=== PATIENT | female | born 1940 | race Caucasian/White ===

== ENCOUNTER 2019-09-25 11:23 | Outpatient (CLI) | payer MEDICARE, SELFPAY | END 2019-09-25 11:24 | disposition home or self-care (01) | LOC: ANHSURGERY 11:24 | PROVIDERS: PCP Family Medicine; Visit Provider Student in an Organized Health Care Education/Training Program | DX: N95.0 Postmenopausal bleeding (principal) | CPT/HCPCS: 36415; 85014; 85018 ==

== ENCOUNTER 2019-10-01 02:09 | Outpatient (CLI) | payer MEDICARE, SELFPAY ==
[2019-10-01 18:23] LABS: SARS-CoV-2 RNA PCR Negative
== END 2019-10-01 02:10 | disposition home or self-care (01) ==
LOC: ANHCOVIDDT 02:09
PROVIDERS: PCP Family Medicine; Visit Provider Student in an Organized Health Care Education/Training Program
DX: Z01.812 Encounter for preprocedural laboratory examination (principal); Z20.828 Contact with and (suspected) exposure to other viral communicable diseases
CPT/HCPCS: 87635; C9803; U0003

== ENCOUNTER 2019-10-03 01:11 | Day surgery (SDC) | payer MEDICARE, SELFPAY ==
[2019-09-23 13:06] VITALS: BMI 23.8
--- NOTE | 2019-09-26 09:36 | PM.IMHP ---
H&P: HPI History of Present Illness Date/Time: 09/26/19 09:36 Chief complaint: Post Menopausal Bleeding Narrative: Lissette Hackett is a 79 year old female Female presents with postmenopausal bleeding. Patient's an episode of vaginal bleeding and minutes. She had her urethra fully when she had the Ellik discharge spotting pelvic ultrasound was largely unremarkable. 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, 2012 Social History Social History Smoking status: Former smoker Smoking end date: 02/06/1961 Additional smoking assessment comments: STATES 1PK/WEEK QUIT 1961 Alcohol intake: current Spiritual care concerns: No Meds Home Medications and Allergies Home Medications Medication Instructions Recorded Confirmed Type albuterol sulfate 90 mcg/actuation 1 puff INHALATION Q4H PRN 07/05/19 09/23/19 History aerosol inhaler diltiazem HCl 240 mg 240 mg PO DAILY 07/05/19 09/23/19 History capsule,extended release 24 hr lamotrigine 100 mg tablet 100 mg PO DAILY 07/05/19 09/23/19 History losartan 25 mg tablet 25 mg PO DAILY 07/05/19 09/23/19 History rivaroxaban 20 mg tablet 20 mg PO DAILY 07/05/19 09/23/19 History trazodone 50 mg tablet 50 mg PO BID tablet 07/05/19 09/23/19 History omeprazole 20 mg capsule,delayed See Rx Instructions .ROUTE 08/26/19 09/23/19 Rx release .COMPLEX #180 cap docusate sodium [Colace] 100 mg PO DAILY 09/23/19 09/23/19 History Allergies Allergy/AdvReac Type Severity Reaction Status Date / Time gabapentin Allergy Unknown DELUSIONAL Verified 09/23/19 13:13 Exam Const: General: no acute distress Eyes: General: appearance normal, both eyes and all related structures Neck: Neck: supple and no JVD Thyroid: thyroid normal Resp: Effort & Inspection: normal respiratory effort Auscultation: clear to auscultation bilaterally Cardio: Rate: regular rate Rhythm: regular rhythm GI: Inspection: non-distended GI Palp: Yes Soft to palpation, No Tenderness to palpation present (GI) and No Guarding due to palpation present (GI) Auscultation: normal bowel sounds : General: Yes bladder normal to palpation External Female Exam: normal external appearance Speculum Exam - Vagina: normal vaginal discharge and No vaginal bleeding Speculum Exam - Cervix: nontender Bimanual exam- vagina & uterus: bladder normal to palpation and No Cervical tenderness present OB/external & speculum: No vaginal bleeding Skin: General skin exam: no rashes or lesions noted Extrem: General: normal to inspection and no edema Psych: Mental Status: mental status grossly normal Affect: normal affect Assessment and Plan Additional Plan impression: Postmenopausal bleeding Plan: Hysteroscopy / dilatation curettage
--- NOTE | 2019-10-02 11:21 | WPDANESEPPF ---
Anes - Initial Pre Proc Eval Procedure: Operation Date: 10/03/19 12:00 Proposed Procedures p Hysteroscopy Dilation and Curettage - Nhan Thakur MD Date/Time: 10/02/19 11:21 Surgeon: Nhan Thakur MD Pre Op Diagnosis: Post Menopausal Bleeding Patient Data Age: 79 Gender: F Height: 1.57 m Weight: 59 kg Allergies Allergy/AdvReac Type Severity Reaction Status Date / Time gabapentin Allergy Severe PSYCHOTIC Verified 10/03/19 10:20 BREAK Home Medications Medication Instructions Recorded Confirmed Type albuterol sulfate 90 mcg/actuation 1 puff INHALATION Q4H PRN 07/05/19 10/03/19 History aerosol inhaler diltiazem HCl 240 mg 240 mg PO DAILY 07/05/19 10/03/19 History capsule,extended release 24 hr lamotrigine 100 mg tablet 100 mg PO DAILY 07/05/19 10/03/19 History losartan 25 mg tablet 25 mg PO DAILY 07/05/19 10/03/19 History rivaroxaban 20 mg tablet 20 mg PO DAILY 07/05/19 10/03/19 History trazodone 50 mg tablet 50 mg PO BID tablet 07/05/19 10/03/19 History omeprazole 20 mg capsule,delayed See Rx Instructions .ROUTE 08/26/19 10/03/19 Rx release .COMPLEX #180 cap docusate sodium [Colace] 100 mg PO DAILY 09/23/19 10/03/19 History Patient hx anesthesia problems: none Family hx anesthesia problems: none PMFSH Past Medical History Medical History (Updated 10/03/19 @ 07:47 by Nhan Thakur MD) Bipolar disorder Hypertension Neuropathy ANDREY (obstructive sleep apnea) mild, no CPAP Osteoarthritis PAF (paroxysmal atrial fibrillation) Rhinitis Scoliosis Shortness of Breath Surgical History Surgical History (Updated 07/05/19 @ 13:02 by Tabatha Sweeney MD) History of intestinal surgery April 2007 Status post left hip replacement August 20, 2012 Social History Social History Smoking status: Former smoker Smoking end date: 02/06/1961 Additional smoking assessment comments: STATES 1PK/WEEK QUIT 1961 Alcohol intake: current Living arrangements: alone Spiritual care concerns: No Anes - Eval Final PreProcedure Day of Procedure 10/02/19 11:21 Patient weight: normal Heart: regular rate and rhythm Lungs: clear to auscultation and normal air movement Airway: Mallampati scale class III Neurological: alert and oriented Last oral intake: >/= 8 hours ASA classification: III Emergent: no Anesthetic plan: proceed Anesthesia type and monitoring: general GIVS and standard monitoring Informed Consent: The patient's anesthetic plan and its attendant risks and benefits were discussed with the patient/family/POA. Questions were solicited and answers provided to the satisfaction of the patient/family/POA.
--- NOTE | 2019-10-03 07:42 | PM.IMHP ---
H&P: HPI History of Present Illness Date/Time: 10/03/19 07:42 Chief complaint: Post Menopausal Bleeding Narrative: Lissette Hackett is a 79 year old female who presented with postmenopausal bleeding. Pt reported vaginal spotting on and off. She had a pelvic US which showed a EM thickness of 5mm. Endometrial biopsy in office was unsuccessful due to patient intolerance of exam and vaginal stenosis. Pt continued to have vaginal spotting so decision was made to proceed with hysteroscopy and D&C. Review of Systems Cardiovascular: Cardiovascular: Denies chest pain, Denies leg edema, Denies palpitations, Denies dyspnea and Denies dyspnea on exertion Respiratory: Respiratory: Denies cough, Denies dyspnea and Denies dyspnea on exertion Gastrointestinal: Gastrointestinal: Denies abdominal pain, Denies constipation, Denies diarrhea, Denies nausea and Denies vomiting Genitourinary: Genitourinary: Denies hematuria, Denies urinary frequency, Denies dysuria, Denies pelvic pain, Denies urinary incontinence and Denies vaginal discharge Neurologic: Reports system reviewed and no additional complaints, except as documented Psychiatric: Psychiatric: Reports no additional psychiatric complaints Endocrine: Endocrine: Denies palpitations PMFSH Past Medical History Medical History (Updated 10/03/19 @ 07:47 by Nhan Thakur MD) Bipolar disorder Hypertension Neuropathy ANDREY (obstructive sleep apnea) mild, no CPAP Osteoarthritis PAF (paroxysmal atrial fibrillation) Rhinitis Scoliosis Shortness of Breath Surgical History Surgical History (Updated 07/05/19 @ 13:02 by Tabatha Sweeney MD) History of intestinal surgery April 2007 Status post left hip replacement August 20, 2012 Social History Social History Smoking status: Former smoker Smoking end date: 02/06/1961 Additional smoking assessment comments: STATES 1PK/WEEK QUIT 1961 Alcohol intake: current Living arrangements: alone Spiritual care concerns: No Meds Home Medications and Allergies Home Medications Medication Instructions Recorded Confirmed Type albuterol sulfate 90 mcg/actuation 1 puff INHALATION Q4H PRN 07/05/19 09/23/19 History aerosol inhaler diltiazem HCl 240 mg 240 mg PO DAILY 07/05/19 09/23/19 History capsule,extended release 24 hr lamotrigine 100 mg tablet 100 mg PO DAILY 07/05/19 09/23/19 History losartan 25 mg tablet 25 mg PO DAILY 07/05/19 09/23/19 History rivaroxaban 20 mg tablet 20 mg PO DAILY 07/05/19 09/23/19 History trazodone 50 mg tablet 50 mg PO BID tablet 07/05/19 09/23/19 History omeprazole 20 mg capsule,delayed See Rx Instructions .ROUTE 08/26/19 09/23/19 Rx release .COMPLEX #180 cap docusate sodium [Colace] 100 mg PO DAILY 09/23/19 09/23/19 History Allergies Allergy/AdvReac Type Severity Reaction Status Date / Time gabapentin Allergy Unknown DELUSIONAL Verified 09/23/19 13:13 Exam Const: General: no acute distress Eyes: EOM: EOMs intact bilaterally Neck: Neck: supple Thyroid: thyroid normal Chest: Breast/axilla inspection: normal inspection of the breasts Breast/axilla palpation: normal palpation of the breasts, normal palpation of the axillae and no axillary lymphadenopathy Resp: Effort & Inspection: normal respiratory effort Auscultation: clear to auscultation bilaterally Cardio: Rate: regular rate Rhythm: regular rhythm GI: Inspection: non-distended GI Palp: Yes Soft to palpation, No Tenderness to palpation present (GI) and No Guarding due to palpation present (GI) Auscultation: normal bowel sounds : General: Yes bladder normal to palpation External Female Exam: normal external appearance Speculum Exam - Vagina: normal vaginal discharge and tenderness Bimanual exam- vagina & uterus: bladder normal to palpation and Cervical tenderness present OB/external & speculum: No vaginal bleeding Skin: General skin exam: normal color and no
[2019-10-03 10:04] VITALS: BP 169/93; PULSE 88; RESP 20; TEMP 37; O2SAT 99
[2019-10-03] MEDS: ACETAMINOPHEN 500 MG TABLET 1000 MG PO (10:24)
[2019-10-03] MEDS: LACTATED RINGERS 1,000 ML 30 ML IV CONT (10:31)
[2019-10-03] MEDS: LIDOCAINE HCL 1% LOCAL INJ 20 ML VIAL 10 ML INFILTRATE (12:38)
--- NOTE | 2019-10-03 12:43 | PM.PROC ---
Procedure Note - Detailed Date of procedure: 10/03/19 Pre-op diagnosis: Post Menopausal Bleeding Post-op diagnosis: same Procedure performed: Hysteroscopy Dilation and curettage Description of procedure: The patient was taken to the OR and general anesthesia induced. She was prepped and draped in yellow fin stirrups with support of the back and bilateral lower extremities. I/O catheterization performed of the bladder. Sterile speculum was placed to identify the cervix. On exam, there was suspicion that there may be two cervix. The cervix patient's left was then infiltrated with 1% lidocaine at the 3 and 9 o'clock cervical positions was performed. A single tooth tenaculum was placed on the anterior lip of the cervix. The cervix was dilated with sequential Sherice dilators. Hysteroscopy, using a normal saline medium, was performed. Hysteroscopy revealed pale, normal appearing endometrial tissue, there was also suture material identified in the uterine cavity. Sharp uterine curettage was then performed and tissue placed on Telfa. The tenaculum was removed and hemostasis was observed. Attention was then turned to the patients other cervix on her right side. Again, infiltration wiht 1% lidocaine was performed. The cervix was sequentially dilated to allow passage of the hysteroscope. Hysteroscopy again revealed pale, normal appearing endometrial tissue and again suture material. It was uncertain if this was two separate uterine cavities or if both cervix passages connected to the same uterus. Again, sharp curettage was performed and tissue sample was placed on Telfa and sent for pathology. The patient tolerated the procedure well. Sponge, lap, and needle counts were correct. The patient had SCD's on throughout the case for VTE prophylaxis. The patient was taken to the recovery room in stable condition. Anesthesia: GETA Surgeon: Nhan Thakur MD Estimated blood loss (mL): 25 Drains: No Packing: No Pathology: yes (endometrial curettings ) Complications: No immediate complications Condition: stable Disposition: PACU
--- NOTE | 2019-10-03 12:47 | SUR.OPER ---
500ml ns in, 500ml ns out. aware.
[2019-10-03 12:50] VITALS: BP 126/78; PULSE 74; RESP 12; O2SAT 97
[2019-10-03 13:20] VITALS: BP 113/78; PULSE 72; RESP 14
[2019-10-03 13:50] VITALS: BP 123/78; PULSE 72; RESP 14
== END 2019-10-03 13:50 | disposition home or self-care (01) ==
PROVIDERS: PCP Family Medicine; Visit Provider Student in an Organized Health Care Education/Training Program
PROC: 0U5B8ZZ Destruction of Endometrium, Via Natural or Artificial Opening Endoscopic (ICD-10-PCS; CPT 58563; principal; 2019-10-03 12:00)
DX: N95.0 Postmenopausal bleeding (principal); I10 Essential (primary) hypertension; F31.9 Bipolar disorder, unspecified; G47.33 Obstructive sleep apnea (adult) (pediatric); I48.0 Paroxysmal atrial fibrillation; Z87.891 Personal history of nicotine dependence; N89.5 Stricture and atresia of vagina; Z79.899 Other long term (current) drug therapy
CPT/HCPCS: 58558; 88305; A9270; J2704; J3010; J7030; J7120

== ENCOUNTER 2020-04-06 16:19 | Outpatient (CLI) | payer MEDICARE, SELFPAY | END 2020-04-06 16:20 | disposition home or self-care (01) | LOC: ANHCOVIDVC 16:19 | PROVIDERS: PCP Family Medicine | DX: Z23 Encounter for immunization (principal) | CPT/HCPCS: 0001A; 91300 ==

== ENCOUNTER 2020-04-27 15:58 | Outpatient (CLI) | payer MEDICARE, SELFPAY | END 2020-04-27 15:59 | disposition home or self-care (01) | LOC: ANHCOVIDVC 15:58 | PROVIDERS: PCP Family Medicine | DX: Z23 Encounter for immunization (principal) | CPT/HCPCS: 0002A; 91300 ==

== ENCOUNTER 2020-05-19 10:16 | Outpatient (CLI) | payer MEDICARE, SELFPAY ==
--- NOTE | ~2020-05-19 | XR_ITS ---
EXAMINATION: XR lg joint inject/asp w image DATE: 05/19/2020 11:21 INDICATION: Right hip pain. TECHNIQUE: A time-out was performed to verify the patient's name, date of , and procedure to b e performed. The procedure including the risks, benefits, and alternatives was discussed with the pat ient. Risks discussed included bleeding and infection. The patient understood the risks and agreed to proceed. The skin overlying the right hip joint was prepped and draped in usual sterile fashion. A nesthetic was administered with 1% lidocaine subcutaneously. A 22 G needle was advanced under fluoro scopic guidance into the joint. Injection of 1 mL of Omnipaque 240 confirmed intra-articular positio n of the needle. Subsequently, injectate consisting of 4 mL 1% lidocaine and 1 mL 80 mg/mL Depo-Medr ol was instilled. The needle was removed and the entry site was cleaned and dressed. There were no immediate complications. Fluoroscopy exposure time was 0.1 minutes. The total number of images was 2. FINDINGS: Real-time fluoroscopy demonstrates the needle in the right hip joint. IMPRESSION: 1. Fluoroscopy guided right hip joint injection of local anesthetic and steroid. Reviewed, dictated and finalized at location A. IMPRESSION: 1. Fluoroscopy guided right hip joint injection of local anesthetic and steroid .
== END 2020-05-19 10:17 | disposition home or self-care (01) ==
PROVIDERS: PCP Family Medicine; Visit Provider Orthopaedic Surgery
DX: M16.11 Unilateral primary osteoarthritis, right hip (principal)
CPT/HCPCS: 20610; 77002; J1040; Q9966

== ENCOUNTER 2021-09-28 08:50 | Emergency (ER) | payer MEDICARE, SELFPAY ==
[2021-09-28] VITALS (7 sets, daily range): BP systolic 127–167; BP diastolic 77–100; PULSE 88–107; RESP 16–18; TEMP 36.6; O2SAT 97–98
--- NOTE | ~2021-09-28 | XR_ITS ---
EXAMINATION: XR knee LT 3V DATE: 09/28/2021 10:12 INDICATION: Left knee pain. Fall. TECHNIQUE: 3 views of left knee were obtained. COMPARISON: None. FINDINGS: Bone alignment is normal. No fracture. There is mild tricompartmental osteoarthritis. There is a small knee joint effusion. There is prepatellar soft tissue swelling. IMPRESSION: 1. Mild left knee osteoarthritis. 2. Small left knee joint effusion. 4. Prepatellar soft tissue swelling. Reviewed, dictated and finalized at location A.
--- NOTE | ~2021-09-28 | XR_ITS ---
EXAMINATION: XR hip LT 2V w AP pelvis DATE: 09/28/2021 10:12 INDICATION: Left hip pain. Fall. TECHNIQUE: An anteroposterior view of the pelvis on 2 radiographs and and 2 views of left hip were ob tained. COMPARISON: None. FINDINGS: There is a total left hip arthroplasty in near-anatomic alignment. No fracture. No peripros thetic lucency to suggest loosening or infection. There is moderate right hip osteoarthritis. Osteiti s pubis is noted. There is lumbar dextrocurvature and severe spondylosis. IMPRESSION: 1. Total left hip arthroplasty in near-anatomic alignment. 2. Moderate right hip osteoarthritis. Reviewed, dictated and finalized at location A.
--- NOTE | 2021-09-28 09:33 | ED.FALL ---
HPI - Fall General Chief Complaint: Fall Stated Complaint: LLE pain s/p fall Time Seen by Provider: 09/28/21 09:01 History of Present Illness HPI Narrative: 81-year-old female presents to the emergency room today for complaints of left hip pain and left knee pain. She had a ground-level fall yesterday evening. A neighbor was able to help her up and she said that she did not really have much pain initially after the fall. She says that during the night she started to have significant pain and swelling in her left knee. Today she is noted quite a bit of bruising and swelling to her left knee. She describes it as a burning kind of pain in her knee. She also has a large bruised area to her left lateral hip. She says that her hip is a little bit sore but not too bad. She is on a blood thinner. No injury to head, neck or back. Related Data Home Medications Medication Instructions Recorded Confirmed diltiazem HCl 240 mg 240 mg PO DAILY 07/05/19 03/30/21 capsule,extended release 24 hr lamotrigine 100 mg tablet 100 mg PO DAILY 07/05/19 03/30/21 (Lamictal) losartan 25 mg tablet (Cozaar) 25 mg PO DAILY 07/05/19 03/30/21 rivaroxaban 20 mg tablet (Xarelto) 20 mg PO DAILY 07/05/19 03/30/21 trazodone 50 mg tablet 50 mg PO BID 07/05/19 03/30/21 mirabegron 25 mg tablet,extended 25 mg PO DAILY 09/28/20 03/30/21 release 24 hr (Myrbetriq) Allergies Allergy/AdvReac Type Severity Reaction Status Date / Time gabapentin Allergy Severe PSYCHOTIC Verified 09/28/21 09:08 BREAK Review of Systems Review of Systems: CONSTITUTIONAL: Denies fever, chills, or sweats. EYES: Denies visual changes, redness, or discharge. ENT: Denies rhinorrhea, congestion, sore throat, or otalgia. CARDIOVASCULAR: Denies chest pain, palpitations, or edema. RESPIRATORY: Denies cough or dyspnea. GASTROINTESTINAL: Denies abdominal pain, nausea, vomiting, or diarrhea. GENITOURINARY: Denies dysuria or hematuria. SKIN: as per HPI MUSCULOSKELETAL: as per HPI NEUROLOGIC: Denies headache, numbness, dizziness, or weakness. PSYCHIATRIC: Denies anxiety or depression. [facility] Past Medical History Medical History Bipolar disorder Hypertension Neuropathy ANDREY (obstructive sleep apnea) mild, no CPAP Osteoarthritis PAF (paroxysmal atrial fibrillation) Rhinitis Scoliosis Shortness of Breath Surgical History Surgical History History of intestinal surgery April 2007 Status post left hip replacement August 20, 2012 Family History Family History Mother Family history of cardiovascular disease, Onset Age: 74 Hypertension Sibling Hypertension Malignant neoplasm of prostate Other Family history of schizophrenia Social History Social History Smoking status: Former smoker Smoking end date: 02/06/1961 Additional smoking assessment comments: STATES 1PK/WEEK QUIT 1961 Alcohol intake: current Spiritual care concerns: No Exam Narrative: GENERAL: Well-appearing, well-nourished, and in no acute distress. HEAD: Normocephalic, atraumatic. EYES: PERRLA and EOMI. ENT: Nares clear, no rhinorrhea or epistaxis. Mucous membranes moist. Oropharynx without tonsillar hypertrophy exudate or other lesions. Bilateral TMs pearly nieto nonbulging NECK: Supple. No adenopathy or masses. No carotid bruits or JVD CHEST: Clear to auscultation. No respiratory distress. No wheezes rales or rhonchi HEART: Regular rate and rhythm. No murmur heard. Normal peripheral pulses. ABDOMEN: Soft, nontender, nondistended, normal active bowel sounds. EXTREMITIES: Left lateral/posterior hip with hematoma and tenderness, no deformity, normal ROM. Left knee very swollen with large hematoma, distal pulses and sensation intact. SKIN: Warm, dry, no rash.
== END 2021-09-28 11:27 | disposition home or self-care (01) ==
PROVIDERS: Emergency Provider Nurse Practitioner Family; PCP Family Medicine
DX: S70.02XA Contusion of left hip, initial encounter (principal); S80.02XA Contusion of left knee, initial encounter; I10 Essential (primary) hypertension; I48.0 Paroxysmal atrial fibrillation; G47.33 Obstructive sleep apnea (adult) (pediatric); F31.9 Bipolar disorder, unspecified; Z79.01 Long term (current) use of anticoagulants; Z96.642 Presence of left artificial hip joint; Z87.891 Personal history of nicotine dependence; M17.12 Unilateral primary osteoarthritis, left knee; M16.11 Unilateral primary osteoarthritis, right hip
CPT/HCPCS: 73502; 73562; 99284

== ENCOUNTER → 2021-11-10 13:37 | Outpatient (CLI) | payer MEDICARE, SELFPAY ==
--- NOTE | ~2021-11-10 | XR_ITS ---
EXAM: XR wrist LT min 3V DATE: 11/10/2021 13:53 HISTORY: Primary osteoarthritis, left and right wrist no injury . COMPARISON: None available. FINDINGS: Decreased mineralization. No fracture or dislocation. No lytic or blastic lesion. Moderate degenerative change at the left trapeziometacarpal joint and first PIP joint, with similar but milde r changes on the right. Severe arthritic change at the triscaphe joints. Bilateral radial carpal narr owing. Abnormal scapholunate and capitolunate angles bilaterally, worse on the left. No erosion or pe riosteal change. Chondrocalcinosis. Bilateral wrist soft tissue swelling. IMPRESSION: Arthritic changes, most pronounced in the left trapeziometacarpal joint and bilateral tri scaphe joints. Bilateral SLAC wrist deformity. Chondrocalcinosis, can be seen with CPPD. Reviewed, dictated and finalized at location K. IMPRESSION: Arthritic changes, most pronounced in the left trapeziometacarpal j oint and bilateral triscaphe joints. Bilateral SLAC wrist deformity. Chondrocal cinosis, can be seen with CPPD.
--- NOTE | ~2021-11-10 | XR_ITS ---
EXAMINATION: XR wrist RT min 3V DATE: 11/10/2021 13:53 INDICATION: Primary osteoarthritis of the right wrist TECHNIQUE: Posteroanterior, ulnar deviation, oblique, and lateral views of the right wrist were obtai lorenzo. COMPARISON: 04/14/2014 FINDINGS: Diffuse osteopenia. No fracture. There is suboptimal positioning on the lateral projection however th ere does appear to be increased lunocapitate angle. There is also mild relative widening of the scaph olunate interval and atypical severe osteoarthritis at the lunocapitate articulation. 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 Additional severe osteoarth ritis at the triscaphe and first carpal metacarpal joints, moderate osteoarthritis at the first inter phalangeal and second-fourth metacarpophalangeal joints and mild osteoarthritis at the remaining join ts at the right wrist and visualized hand. IMPRESSION: 1. Constellation of findings consistent with chronic scapholunate ligament insufficiency and secondar y dorsal intercalated segment instability (DISI) and scapholunate advanced collapse (SLAC) wrist. 2. Moderate to severe osteoarthritis at the right hand. Reviewed, dictated and finalized at location A. IMPRESSION: 1. Constellation of findings consistent with chronic scapholunate ligament insu fficiency and secondary dorsal intercalated segment instability (DISI) and scap holunate advanced collapse (SLAC) wrist. 2. Moderate to severe osteoarthritis at the right hand.
== END ==
PROVIDERS: PCP Family Medicine; Visit Provider Plastic Surgery
DX: M19.031 Primary osteoarthritis, right wrist (principal); M19.032 Primary osteoarthritis, left wrist
CPT/HCPCS: 73110

== ENCOUNTER 2021-12-31 16:07 | Emergency (ER) | payer MEDICARE, SELFPAY ==
[2021-12-31 16:21] VITALS: BP 141/93; PULSE 81; RESP 16; TEMP 36.6; O2SAT 96
== END 2021-12-31 21:26 | disposition left against medical advice (07) ==
PROVIDERS: PCP Family Medicine
DX: R06.02 Shortness of breath (principal)
CPT/HCPCS: 99199

== ENCOUNTER 2022-01-01 10:42 | Inpatient (IN) | payer MEDICARE, SELFPAY ==
[2022-01-01] VITALS (42 sets, daily range): BP systolic 127–158; BP diastolic 76–109; PULSE 74–118; RESP 14–40; TEMP 35.9–37.1; O2SAT 89–100; BMI 24.2
--- NOTE | ~2022-01-01 | XR_ITS ---
XR chest 2V DATE: 01/01/2022 11:25 INDICATION: Cough, shortness of breath TECHNIQUE: PA and lateral views COMPARISON: 08/14/2015 2 view chest FINDINGS: Bilateral hyperinflation. There is mild infiltrate or atelectasis in the lung bases, primarily left lower lobe. The lungs other dye appear clear of infiltrate or consolidation. Cardiomegaly. Aortic calcification, ectasia. No hilar or mediastinal enlargement is noted. Diffuse osteopenia. Thoracic kyphosis. Degenerative change of the thoracic and lumbar spine. IMPRESSION: Mild infiltrate or atelectasis at the lung bases, primarily left lower lobe. Reviewed, dictated and finalized at location A. METERS CALIBRATOR IMPRESSION: Mild infiltrate or atelectasis at the lung bases, primarily left lo wer lobe.
--- NOTE | 2022-01-01 10:59 | ECG_ITS ---
Measurements Intervals [place] Rate: 102 P: 56 DC: 212 QRS: 33 QRSD: 89 T: 33 QT: 315 QTc: 412 Interpretive Statements SINUS TACHYCARDIA WITH FIRST DEGREE AV BLOCK DELAYED PRECORDIAL R/S TRANSITION BASELINE ARTIFACT- II, III, AVL, AVF, V1, V6 ABNORMAL ECG NO PREVIOUS ECG AVAILABLE FOR COMPARISON Electronically Signed On 01-01-2022 11:42:26 [employer] by Janusz Rashid D.O.
[2022-01-01 11:22] LABS: Potassium 4.3 mmol/L (3.4-5.0)
[2022-01-01 11:23] LABS: Basophils Percent Auto 0.2 % (0.2-1.2); Eosinophils Absolute Auto 0.3 K/mm3 (0-0.3); Hematocrit 46.1 % (37.0-47.0); Immature Granulocyte Absolute 0.03 K/mm3 (0.00-0.031); Immature Granulocyte Percent A 0.3 % (0-0.5); Lymphocytes Absolute Auto 0.58 K/mm3 (0.9-3.2); Lymphocytes Percent Auto 6.3 % (18.3-44.2); Mean Corpuscular HGB Conc 32.5 g/dl (32-36); Mean Corpuscular Hemoglobin 30.7 pg (26-34); Mean Corpuscular Volume 94.5 fl (80-100); Mean Platelet Volume 9.2 fl (7.4-10.4); Monocytes Absolute Auto 1.1 K/mm3 (0.1-0.6); Monocytes Percent Auto 12.1 % (2.6-8.5); Neutrophils Absolute Auto 7.2 K/mm3 (1.3-6.7); Neutrophils Percent Auto 78.1 % (45.5-73.1); Platelet Count Result 317 k/mm3 (150-375); Red Blood Count 4.88 M/mm3 (4.2-5.4); Red Cell Distribution Width 13.7 % (11.5-14.5); White Blood Count 9.2 K/mm3 (4.5-10.0)
[2022-01-01 11:30] LABS: Alanine Aminotransferase 21 U/L (6-35); Albumin Level 4.5 g/dL (3.5-5.1); Alkaline Phosphatase 95 U/L (38-126); Anion Gap 9 mmol/L (8-16); Aspartate Amino Transferase 23 U/L (14-36); Bilirubin,Total 0.5 mg/dL (0.2-1.3); Blood Urea Nitrogen 14 mg/dL (7-17); Calcium 9.3 mg/dL (8.4-10.2); Carbon Dioxide 28 mmol/L (22-30); Chloride 93 mmol/L (98-107); Estimated CRCL calculation 48 ml/min; Estimated Glomerular Filt Rate > 60; Glucose 117 mg/dL (65-110); Sodium 130 mmol/L (137-145)
[2022-01-01] MEDS: ALBUTEROL SULFATE NEB 2.5 MG/3 ML INH 15 MG INHALATION (11:59)
[2022-01-01] MEDS: IPRATROPIUM BR 0.02% INH SOLN 0.5 MG/2.5 ML VIAL 1.5 MG INHALATION (11:59)
[2022-01-01 12:26] LABS: Influenza A QL RT-PCR Negative (Negative); Influenza B QL RT-PCR Negative (Negative); SARS-CoV-2 RNA PCR Negative
[2022-01-01] MEDS: methylPREDNISolone SOD SUCC 125 MG VIAL IV PUSH (13:45)
--- NOTE | 2022-01-01 14:36 | PC.NURSE ---
pt to bathroom, pt o2 saturation dropped to 89% on RA taken back to room. NC placed back on the pt
--- NOTE | 2022-01-01 14:45 | ED.SOB ---
HPI - SOB/Dyspnea General Chief Complaint: Shortness of Breath/Dyspnea Stated Complaint: cough, SOB Time Seen by Provider: 01/01/22 10:44 History of Present Illness HPI Narrative: Patient is an 81-year-old female who presents ER with shortness of breath. Worsening over the last week. Associate with cough. No fevers or chills. No chest pain or chest pressure. Has history of COPD. Has been using her breathing treatments without improvement. Today she is unable to walk from her bedroom to her front door and that is why she knew she needed to be evaluated. Related Data Home Medications Medication Instructions Recorded Confirmed diltiazem HCl 240 mg 240 mg PO DAILY 07/05/19 01/01/22 capsule,extended release 24 hr lamotrigine 100 mg tablet 100 mg PO HS 07/05/19 01/01/22 (Lamictal) losartan 25 mg tablet (Cozaar) 25 mg PO DAILY 07/05/19 01/01/22 rivaroxaban 20 mg tablet (Xarelto) 20 mg PO DAILY 07/05/19 01/01/22 eszopiclone 2 mg tablet 2 mg PO HS 01/01/22 01/01/22 omeprazole 20 mg capsule,delayed 20 mg PO BID 01/01/22 01/01/22 release Allergies Allergy/AdvReac Type Severity Reaction Status Date / Time gabapentin Allergy Severe PSYCHOTIC Verified 01/01/22 11:00 BREAK Review of Systems Review of Systems: All systems reviewed & are unremarkable except as noted in HPI and below Constitutional: Constitutional: Denies chills, Reports fatigue and Denies fever(s) ENT: Denies nasal congestion and Denies sore throat Cardiovascular: Cardiovascular: Denies chest pain, Denies rapid heart rate and Denies radiating jaw, neck or arm pain Respiratory: Respiratory: Reports cough, Reports dyspnea and Reports wheezing Gastrointestinal: Gastrointestinal: Denies abdominal pain, Denies nausea and Denies vomiting Musculoskeletal: Musculoskeletal: Denies back pain and Denies myalgias [facility] Past Medical History Medical History (Updated 01/01/22 @ 18:39 by Silverio Sotelo MD) Bipolar disorder COPD (chronic obstructive pulmonary disease) Hypertension Neuropathy ANDREY (obstructive sleep apnea) mild, no CPAP Osteoarthritis PAF (paroxysmal atrial fibrillation) Rhinitis Scoliosis Shortness of Breath Surgical History Surgical History (Updated 01/01/22 @ 17:05 by Yolanda Allen NP) H/O exploratory laparotomy History of bunionectomy History of intestinal surgery April 2007 S/P carpal tunnel release Status post left hip replacement August 20, 2012 Total knee replacement status Family History Family History Mother Family history of cardiovascular disease, Onset Age: 74 Hypertension Sibling Hypertension Malignant neoplasm of prostate Other Family history of schizophrenia Social History Social History (Updated 01/01/22 @ 16:50 by Yolanda Allen NP) Social History: She lives alone but her son is approximately half a mi down the road. She is . She has 4 children. 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 She was a former smoker. She rarely drinks alcohol. No illicit drugs code status dnr Smoking status: Former smoker Smoking end date: 02/06/1961 Additional smoking assessment comments: STATES 1PK/WEEK QUIT 1961 Alcohol intake: current Spiritual care concerns: No Exam Narrative: GENERAL: Chronically ill-appearing, thin, and in no acute distress. HEAD: Normocephalic, atraumatic. EYES: PERRL and EOMI. ENT: Mucous membranes moist. CHEST: Diffuse wheezing. Mild respiratory distress. HEART: Regular rate and rhythm. Normal peripheral pulses. ABDOMEN: Soft, nontender, nondistended. EXTREMITIES: Normal range of motion. No edema. SKIN: Warm, dry, no rash. NEURO: Alert and oriented x3. PSYCH: Normal mood and affect. Course Course Emergency Course: Patient with low O2 sat when she was here. Satting in the 80s after nebuli
--- NOTE | 2022-01-01 15:06 | PM.IMHP ---
H&P: HPI History of Present Illness Date/Time: 01/01/22 15:06 Chief Complaint: Shortness of breath Narrative: This is a 81-year-old female patient who has a history of COPD. She stated that a few days ago she did have a fever and she has been coughing up thick green sputum. The patient does not typically wear oxygen at home however with activity here she has been satting in the upper 80s with activity. She was placed on oxygen at 2 L per nasal cannula and her O2 saturation came up to 98%. She does not have a white count or fever at this time. However her chest x-ray does read as mild infiltrate or atelectasis at the lung bases probably left lower lobe. After reviewing her x-ray I saw the consolidation to the left lobe and decided to place her on community-acquired pneumonia protocol with a azithromycin and Rocephin. Due to from percentage is 78.1. So in levels 130. She was found to be negative for influenza A/B and COVID. She was given an hour long nebulizer treatment and started on Solu-Medrol. The patient is being admitted to observation status on the date of service of 01/01/2022. Review of Systems Review of Systems: see hpi All systems reviewed & are unremarkable except as noted in HPI and below Constitutional: Constitutional: Reports as per HPI and Reports no additional constitutional complaints Eyes: Eyes: Reports as per HPI and Reports no additional eye complaints ENT: Reports system reviewed and no additional complaints, except as documented and Reports Normal hearing present Cardiovascular: Cardiovascular: Reports no additional cardiovascular complaints Respiratory: Respiratory: Reports no additional respiratory complaints and Reports no additional respiratory complaints Gastrointestinal: Gastrointestinal: Reports as per HPI and Reports no additional gastrointestinal complaints Musculoskeletal: Musculoskeletal: Reports no additional musculoskeletal complaints Integumentary/Breasts: Skin/Breast: Reports system reviewed and no additional complaints, except as docu and Reports as per HPI Neurologic: Reports system reviewed and no additional complaints, except as documented, Reports as per HPI and Reports Normal hearing present Psychiatric: Psychiatric: Reports no additional psychiatric complaints and Reports as per HPI Endocrine: Endocrine: Reports no additional endocrine complaints Hematologic/Lymphatic: Hematologic/Lymphatic: Reports no additional hematologic/lymphatic complaints Allergic/Immunologic: Allergic/Immunologic: Reports no additional allergic/immunologic complaints [facility] Past Medical History Medical History (Updated 01/01/22 @ 17:02 by Yolanda Allen NP) Bipolar disorder COPD (chronic obstructive pulmonary disease) Hypertension Neuropathy ANDREY (obstructive sleep apnea) mild, no CPAP Osteoarthritis PAF (paroxysmal atrial fibrillation) Rhinitis Scoliosis Shortness of Breath Surgical History Surgical History (Updated 01/01/22 @ 17:05 by Yolanda Allen NP) H/O exploratory laparotomy History of bunionectomy History of intestinal surgery April 2007 S/P carpal tunnel release Status post left hip replacement August 20, 2012 Total knee replacement status Family History Family History Mother Family history of cardiovascular disease, Onset Age: 74 Hypertension Sibling Hypertension Malignant neoplasm of prostate Other Family history of schizophrenia Social History Social History (Updated 01/01/22 @ 16:50 by Yolanda Allen NP) Social History: She lives alone but her son is approximately half a mi down the road. She is . She has 4 children. 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 She was a former smoker. She rarely drinks alcohol. No illicit drugs code status dnr Smoking status: Former smoker Smoking end d
[2022-01-01] MEDS: methylPREDNISolone SOD SUCC 125 MG VIAL 60 MG IV PUSH (19:00)
[2022-01-01] MEDS: RIVAROXABAN 20 MG TABLET PO (21:00)
[2022-01-01] MEDS: ALBUTEROL SULFATE NEB 2.5 MG/3 ML INH 5 MG INHALATION (22:07)
[2022-01-01] MEDS: IPRATROPIUM BR 0.02% INH SOLN 0.5 MG/2.5 ML VIAL INHALATION (22:08)
[2022-01-01] MEDS: FLUTICASONE/UMECLIDIN/VILANTER 100-62.5-25 MCG ELLIPTA 1 PUFF INHALATION (22:09)
[2022-01-01] MEDS: lamoTRIgine 100 MG TABLET PO (22:15)
[2022-01-02] VITALS (10 sets, daily range): BP systolic 139–155; BP diastolic 74–78; PULSE 71–99; RESP 14–20; TEMP 36.4–36.7; O2SAT 92–98
[2022-01-02] MEDS: methylPREDNISolone SOD SUCC 125 MG VIAL 60 MG IV PUSH ×4 (00:22→17:05)
[2022-01-02] MEDS: ALBUTEROL SULFATE NEB 2.5 MG/3 ML INH 5 MG INHALATION ×4 (02:55→20:33)
[2022-01-02] MEDS: IPRATROPIUM BR 0.02% INH SOLN 0.5 MG/2.5 ML VIAL INHALATION ×4 (02:55→20:33)
[2022-01-02 07:08] LABS: Hematocrit 39.8 % (37.0-47.0); Hemoglobin 13.3 g/dL (12.0-15.0); Mean Corpuscular HGB Conc 33.4 g/dl (32-36); Mean Corpuscular Volume 92.8 fl (80-100); Mean Platelet Volume 9.3 fl (7.4-10.4); Platelet Count Result 283 k/mm3 (150-375); Red Blood Count 4.29 M/mm3 (4.2-5.4); Red Cell Distribution Width 13.6 % (11.5-14.5); White Blood Count 7.2 K/mm3 (4.5-10.0)
[2022-01-02 07:27] LABS: Lactic Acid Reflex 1.3 mmol/L (0.7-2.0)
[2022-01-02 07:28] LABS: Alanine Aminotransferase 20 U/L (6-35); Alkaline Phosphatase 101 U/L (38-126); Anion Gap 6 mmol/L (8-16); Aspartate Amino Transferase 20 U/L (14-36); Bilirubin,Total 0.3 mg/dL (0.2-1.3); Blood Urea Nitrogen 16 mg/dL (7-17); Calcium 8.9 mg/dL (8.4-10.2); Carbon Dioxide 28 mmol/L (22-30); Chloride 93 mmol/L (98-107); Estimated CRCL calculation 68 ml/min; Estimated Glomerular Filt Rate > 60; Glucose 176 mg/dL (65-110); Magnesium 2.1 mg/dL (1.6-2.3); Potassium 4.2 mmol/L (3.4-5.0); Sodium 127 mmol/L (137-145)
[2022-01-02] MEDS: PANTOPRAZOLE 40 MG TABLET PO ×2 (08:21→20:14)
[2022-01-02] MEDS: LOSARTAN POTASSIUM 25 MG TABLET PO (08:21)
[2022-01-02 08:26] LABS: Band Neutrophils Percent 7 % (0-6); Lymphocytes Absolute Manual 0.07 K/mm3 (1.1-4.5); Monocytes Absolute Manual 0.21 K/mm3 (0.1-0.90); Monocytes Percent Manual 3 % (3-9); Neutrophils Absolute Manual 6.91 K/mm3 (1.7-7.2); Neutrophils Percent Manual 89 % (46-73); Total Cells Counted 100
[2022-01-02 08:27] LABS: Platelet Estimate Adequate (Adequate); Poikilocytosis 1+ (NORMAL); Schistocytes None Seen (NORMAL)
--- NOTE | 2022-01-02 10:45 | PM.IMPN ---
Progress Note: A&P Assessment and Plan (1) Pneumonia: Code(s): J18.9 - Pneumonia, unspecified organism Status: Acute Assessment and Plan: -the patient has mild infiltrate or atelectasis at the lung bases primarily left lower lobe. -the patient was started on azithromycin Rocephin as per community-acquired pneumonia protocol -sputum cultures are pending. -Blood cultures pending -Continue ceftriaxone and azithromycin -tailor antibiotics to cultures. -the patient was hypoxic and was placed on oxygen at 2 L per nasal cannula. (2) COPD (chronic obstructive pulmonary disease): Code(s): J44.9 - Chronic obstructive pulmonary disease, unspecified Status: Acute Assessment and Plan: -the patient was given an hour long nebulizer treatment which helped some but the patient is requiring oxygen at 2 L per nasal cannula due to hypoxia. -continue with Solu-Medrol. -continue with nebulizer treatments. -may consider pulmonary consultation if patient does not improve. -continue with Trelegy Ellipta -Could be more asthma exacerbation (3) GERD (gastroesophageal reflux disease): Code(s): K21.9 - Gastro-esophageal reflux disease without esophagitis Status: Acute Assessment and Plan: -continue with omeprazole (4) Hypertension: Code(s): I10 - Essential (primary) hypertension Status: Acute Assessment and Plan: -patient's blood pressure is currently 155/78 -continue with losartan -trend blood pressure -adjust therapy as indicated (5) PAF (paroxysmal atrial fibrillation): Code(s): I48.0 - Paroxysmal atrial fibrillation Status: Acute Assessment and Plan: -the patient is tachycardic at this time. But does not appear to be in AFib. -continue with Xarelto -continue with Cardizem (6) Bipolar disorder: Code(s): F31.9 - Bipolar disorder, unspecified Status: Acute Assessment and Plan: -continue with Lamictal (7) Acute respiratory failure: Code(s): J96.00 - Acute respiratory failure, unspecified whether with hypoxia or hypercapnia Status: Acute Assessment and Plan: Saturation noted to be in the 80s Tripoding positioning, need for supplemental oxygen, unable to complete sentences Continue oxygen Trend resp status Plan The patient stated that she has mild sleep apnea but does not use a CPAP machine. Subjective Date/time seen: 01/02/22 1045 Interval history: 01/02/22 1045 Patient is seeming to be doing better however she does have a very bad cough. She did state that her cough is producing S green sputum. She did state that her cough has gotten better and that she is not producing as much. She does have some chills but she is typically cold. She is setting better today however she remains on 2 L. she does seem to be very short of breath, tripoding, unable to complete sentences and gasping for breath is through conversation. She also stated that she is very fatigued and gets very short of breath when walking to the bathroom she did say that she was slightly constipated however she does use Metamucil at home and Colace. I did start her on Robitussin and cough drops. She denies any chest pain, shortness of breath, nausea, vomiting, diarrhea, fvers, and sweats. 01/01/22? 15:06 This is a 81-year-old female patient who has a history of COPD.? She stated that a few days ago she did have a fever and she has been coughing up thick green sputum.? The patient does not typically wear oxygen at home however with activity here she has been satting in the upper 80s with activity.? She was placed on oxygen at 2 L per nasal cannula and her O2 saturation came up to 98%.? She does not have a white count or fever at this time.? However her chest x-ray does read as mild infiltrate or atelectasis at the lung bases probably left lower lobe.? After rev
[2022-01-02] MEDS: polyethylene glycoL 3350 17 GM POWD.PACK PO (13:20)
[2022-01-02] MEDS: DOCUSATE SODIUM 100 MG CAPSULE PO (13:21)
[2022-01-02] MEDS: SODIUM CHLORIDE 0.9% IV 1,000 ML 75 ML IV CONT (17:05)
[2022-01-02] MEDS: RIVAROXABAN 20 MG TABLET PO (17:05)
[2022-01-02] MEDS: guaiFENesin/DEXTROMETHORPHAN 10 ML UDC PO (20:14)
[2022-01-02] MEDS: lamoTRIgine 100 MG TABLET PO (20:14)
[2022-01-03] VITALS (9 sets, daily range): BP systolic 124–156; BP diastolic 64–95; PULSE 81–99; RESP 14–38; TEMP 36.2–36.8; O2SAT 90–98
[2022-01-03] MEDS: methylPREDNISolone SOD SUCC 125 MG VIAL 60 MG IV PUSH ×4 (00:12→20:18)
[2022-01-03] MEDS: ACETAMINOPHEN 325 MG TABLET 650 MG PO (00:15)
[2022-01-03 07:18] LABS: Basophils Percent Auto 0.1 % (0.2-1.2); Hematocrit 38.8 % (37.0-47.0); Hemoglobin 13.2 g/dL (12.0-15.0); Immature Granulocyte Absolute 0.13 K/mm3 (0.00-0.031); Immature Granulocyte Percent A 0.7 % (0-0.5); Lymphocytes Absolute Auto 0.37 K/mm3 (0.9-3.2); Lymphocytes Percent Auto 2.1 % (18.3-44.2); Mean Corpuscular Hemoglobin 30.5 pg (26-34); Mean Corpuscular Volume 89.6 fl (80-100); Mean Platelet Volume 9.4 fl (7.4-10.4); Monocytes Absolute Auto 0.6 K/mm3 (0.1-0.6); Monocytes Percent Auto 3.2 % (2.6-8.5); Neutrophils Absolute Auto 16.6 K/mm3 (1.3-6.7); Neutrophils Percent Auto 93.9 % (45.5-73.1); Platelet Count Result 315 k/mm3 (150-375); Red Blood Count 4.33 M/mm3 (4.2-5.4); Red Cell Distribution Width 13.6 % (11.5-14.5); White Blood Count 17.7 K/mm3 (4.5-10.0)
[2022-01-03 07:36] LABS: Alanine Aminotransferase 23 U/L (6-35); Albumin Level 3.7 g/dL (3.5-5.1); Alkaline Phosphatase 91 U/L (38-126); Anion Gap 8 mmol/L (8-16); Aspartate Amino Transferase 25 U/L (14-36); Bilirubin,Total 0.3 mg/dL (0.2-1.3); Blood Urea Nitrogen 23 mg/dL (7-17); Calcium 8.5 mg/dL (8.4-10.2); Carbon Dioxide 27 mmol/L (22-30); Chloride 93 mmol/L (98-107); Estimated CRCL calculation 56 ml/min; Estimated Glomerular Filt Rate > 60; Glucose 139 mg/dL (65-110); Magnesium 2.2 mg/dL (1.6-2.3); Potassium 4.5 mmol/L (3.4-5.0); Sodium 128 mmol/L (137-145)
[2022-01-03] MEDS: IPRATROPIUM BR 0.02% INH SOLN 0.5 MG/2.5 ML VIAL INHALATION ×2 (08:19→13:23)
[2022-01-03] MEDS: ALBUTEROL SULFATE NEB 2.5 MG/3 ML INH 5 MG INHALATION ×2 (08:19→13:23)
[2022-01-03] MEDS: LOSARTAN POTASSIUM 25 MG TABLET PO (08:33)
[2022-01-03] MEDS: DOCUSATE SODIUM 100 MG CAPSULE PO (08:33)
[2022-01-03] MEDS: PANTOPRAZOLE 40 MG TABLET PO ×2 (08:34→20:17)
[2022-01-03] MEDS: polyethylene glycoL 3350 17 GM POWD.PACK PO (08:34)
[2022-01-03] MEDS: SODIUM CHLORIDE 0.9% IV 1,000 ML 75 ML IV CONT (08:44)
[2022-01-03] MEDS: FLUTICASONE/UMECLIDIN/VILANTER 100-62.5-25 MCG ELLIPTA 1 PUFF INHALATION (13:23)
--- NOTE | 2022-01-03 13:39 | PM.IMPN ---
Progress Note: A&P Assessment and Plan (1) Acute respiratory failure: Code(s): J96.00 - Acute respiratory failure, unspecified whether with hypoxia or hypercapnia Status: Acute Assessment and Plan: -Saturation noted to be in the 80s and had tripoding positioning -needed for supplemental oxygen and unable to complete sentences -felt related to PNA and COPD exacerbation -better and able to wean off O2 -still with conversational dyspnea (2) Pneumonia: Code(s): J18.9 - Pneumonia, unspecified organism Status: Acute Assessment and Plan: Patient presents with SOB and CXR showing mild infiltrate or atelectasis at the lung bases primarily left lower lobe. -the patient was started on azithromycin and Rocephin as per community-acquired pneumonia protocol -the patient was hypoxic and was placed on oxygen at 2 L per nasal cannula. -sputum cultures not performed. Blood cultures NGTD -WBC higher but felt more likely related to steroids -Continue ceftriaxone and azithromycin -tailor antibiotics to cultures. (3) COPD (chronic obstructive pulmonary disease): Code(s): J44.9 - Chronic obstructive pulmonary disease, unspecified Status: Acute Assessment and Plan: -the patient was given an hour long nebulizer treatment in ED with benefit. Could be more asthma exacerbation -currently on Solu-Medrol and nebulizer treatments. -may consider pulmonary consultation if patient does not improve. -continue with Trelegy Ellipta -wean steroids (4) GERD (gastroesophageal reflux disease): Code(s): K21.9 - Gastro-esophageal reflux disease without esophagitis Status: Acute Assessment and Plan: -continue with omeprazole (5) Hypertension: Code(s): I10 - Essential (primary) hypertension Status: Acute Assessment and Plan: -blood pressure reviewed -continue with losartan -trend blood pressure -adjust therapy as indicated (6) PAF (paroxysmal atrial fibrillation): Code(s): I48.0 - Paroxysmal atrial fibrillation Status: Acute Assessment and Plan: -EKG showing sinus mechanism -Regular on eam -continue with Xarelto -continue with Cardizem (7) Bipolar disorder: Code(s): F31.9 - Bipolar disorder, unspecified Status: Acute Assessment and Plan: -mood stable -continue with Lamictal (8) Hyponatremia: Code(s): E87.1 - Hypo-osmolality and hyponatremia Status: Acute Assessment and Plan: -Na 130 but dropped to 127 -treated with IV fluids and Na about the same -SLIVF -check urine studies. -follow Plan The patient stated that she has mild sleep apnea but does not use a CPAP machine. Subjective Date/time seen: 01/03/22 13:39 Interval history: 81yo female with bipolar d/o, COPD, HTN, ANDREY and pAFib here for shortness of breath. Assuming care. Chart reviewed. Patient states that she is feeling worse today. She slept poorly last night. She feels more short of breath and more anxious today. No nausea or vomiting. Positive bowel movements. Cough is productive light green sputum. No chest pain. She does state that her son yelled at her last night on the phone which upset her. Son does have schizoaffective disorder. Despite feeling worse she is requesting discharge. Exam Narrative: AF 97.2 1156/95 91 18 94% ra Gen - NARD sitting up in the chair but develops tachypnea with conversation Chest - left base crackles, distant BS CV - RRR S1/S2 Abd - soft. Protuberant. Positive bowel sounds. Back - Kyphosis Ext - Trace left greater than right pedal edema Neuro - Alert and oriented. Nonfocal exam. Psych - Nml mood and affect Skin - Warm and dry Objective Data Vital Signs Vital Signs: Vital Signs - 24 hr 01/02/22 14:00 01/02/22 14:12 01/02/22 14:12 Temperature 97.5 F L Pulse Rate 95 95 Respiratory Rate 16 20 Blood Pressure 155/78 H Pulse Oximetry 96 98
--- NOTE | 2022-01-03 16:05 | PHAR ---
HOME MED VERIFIED ESZOPICLONE 2MG TABLET TAKE 1 TABLET AT BEDTIME
[2022-01-03] MEDS: RIVAROXABAN 20 MG TABLET PO (17:13)
[2022-01-03] MEDS: lamoTRIgine 100 MG TABLET PO (20:17)
[2022-01-03] MEDS: guaiFENesin/DEXTROMETHORPHAN 10 ML UDC PO (20:17)
--- NOTE | 2022-01-03 22:52 | PCRCNOTE ---
Window of time for administration has passed. See next scheduled administration.
[2022-01-03 23:49] LABS: Creatinine Urine 99.2 mg/dL
[2022-01-04 01:13] LABS: Sodium Urine Random < 5 meq/L
[2022-01-04 02:08] VITALS: PULSE 78; RESP 18
[2022-01-04] MEDS: IPRATROPIUM BR 0.02% INH SOLN 0.5 MG/2.5 ML VIAL INHALATION ×2 (02:08→13:21)
[2022-01-04 02:16] VITALS: PULSE 79; RESP 18
[2022-01-04 06:00] VITALS: BP 155/97; PULSE 101; RESP 14; TEMP 36.2; O2SAT 93
[2022-01-04] MEDS: methylPREDNISolone SOD SUCC 125 MG VIAL 60 MG IV PUSH (06:04)
[2022-01-04 06:51] LABS: Basophils Percent Auto 0.1 % (0.2-1.2); Hematocrit 42.6 % (37.0-47.0); Hemoglobin 14.3 g/dL (12.0-15.0); Immature Granulocyte Absolute 0.12 K/mm3 (0.00-0.031); Immature Granulocyte Percent A 0.9 % (0-0.5); Lymphocytes Absolute Auto 0.37 K/mm3 (0.9-3.2); Lymphocytes Percent Auto 2.7 % (18.3-44.2); Mean Corpuscular HGB Conc 33.6 g/dl (32-36); Mean Corpuscular Hemoglobin 31.2 pg (26-34); Mean Corpuscular Volume 92.8 fl (80-100); Mean Platelet Volume 9.5 fl (7.4-10.4); Monocytes Absolute Auto 0.5 K/mm3 (0.1-0.6); Monocytes Percent Auto 3.5 % (2.6-8.5); Neutrophils Absolute Auto 12.9 K/mm3 (1.3-6.7); Neutrophils Percent Auto 92.8 % (45.5-73.1); Platelet Count Result 388 k/mm3 (150-375); Red Blood Count 4.59 M/mm3 (4.2-5.4); Red Cell Distribution Width 13.8 % (11.5-14.5); White Blood Count 13.9 K/mm3 (4.5-10.0)
[2022-01-04 07:09] LABS: Anion Gap 9 mmol/L (8-16); Blood Urea Nitrogen 27 mg/dL (7-17); Calcium 8.7 mg/dL (8.4-10.2); Carbon Dioxide 28 mmol/L (22-30); Chloride 91 mmol/L (98-107); Estimated CRCL calculation 48 ml/min; Estimated Glomerular Filt Rate > 60; Glucose 124 mg/dL (65-110); Potassium 4.4 mmol/L (3.4-5.0); Sodium 128 mmol/L (137-145)
[2022-01-04] MEDS: polyethylene glycoL 3350 17 GM POWD.PACK PO (09:40)
[2022-01-04] MEDS: PANTOPRAZOLE 40 MG TABLET PO (09:40)
[2022-01-04] MEDS: LOSARTAN POTASSIUM 25 MG TABLET PO (09:40)
[2022-01-04] MEDS: DOCUSATE SODIUM 100 MG CAPSULE PO (09:40)
--- NOTE | 2022-01-04 10:46 | PM.DS ---
DS: Admitting Diagnosis Discharge Date January 04 2022 Admitting Diagnosis Shortness of breath DS: Discharge Diagnosis Discharge Diagnosis (1) Acute respiratory failure: Code(s): J96.00 - Acute respiratory failure, unspecified whether with hypoxia or hypercapnia Status: Acute Assessment and Plan: -Saturation noted to be in the 80s and had tripoding positioning -needed for supplemental oxygen and unable to complete sentences -felt related to PNA and COPD exacerbation -better and able to wean off O2 -still with conversational dyspnea (2) Pneumonia: Code(s): J18.9 - Pneumonia, unspecified organism Status: Acute Assessment and Plan: Patient presents with SOB and CXR showing mild infiltrate or atelectasis at the lung bases primarily left lower lobe. -the patient was started on azithromycin and Rocephin as per community-acquired pneumonia protocol -the patient was hypoxic and was placed on oxygen at 2 L per nasal cannula. -sputum cultures not performed. Blood cultures NGTD -WBC higher but felt more likely related to steroids -Continue ceftriaxone and azithromycin -tailor antibiotics to cultures. (3) COPD (chronic obstructive pulmonary disease): Code(s): J44.9 - Chronic obstructive pulmonary disease, unspecified Status: Acute Assessment and Plan: -the patient was given an hour long nebulizer treatment in ED with benefit. Could be more asthma exacerbation -currently on Solu-Medrol and nebulizer treatments. -may consider pulmonary consultation if patient does not improve. -continue with Trelegy Ellipta -wean steroids (4) GERD (gastroesophageal reflux disease): Code(s): K21.9 - Gastro-esophageal reflux disease without esophagitis Status: Acute Assessment and Plan: -continue with omeprazole (5) Hypertension: Code(s): I10 - Essential (primary) hypertension Status: Acute Assessment and Plan: -blood pressure reviewed -continue with losartan -trend blood pressure -adjust therapy as indicated (6) PAF (paroxysmal atrial fibrillation): Code(s): I48.0 - Paroxysmal atrial fibrillation Status: Acute Assessment and Plan: -EKG showing sinus mechanism -Regular on eam -continue with Xarelto -continue with Cardizem (7) Bipolar disorder: Code(s): F31.9 - Bipolar disorder, unspecified Status: Acute Assessment and Plan: -mood stable -continue with Lamictal (8) Hyponatremia: Code(s): E87.1 - Hypo-osmolality and hyponatremia Status: Acute Assessment and Plan: -Na 130 but dropped to 127 -treated with IV fluids and Na about the same -SLIVF -check urine studies. -follow Plan The patient stated that she has mild sleep apnea but does not use a CPAP machine. DS: Summary Hospital Course Hospital Course: 81-year-old female patient who has a history of COPD.? She stated that a few days ago she did have a fever and she has been coughing up thick green sputum.? The patient does not typically wear oxygen at home however with activity here she has been satting in the upper 80s with activity.? She was placed on oxygen at 2 L per nasal cannula and her O2 saturation came up to 98%.? She does not have a white count or fever at this time.? However her chest x-ray does read as mild infiltrate or atelectasis at the lung bases probably left lower lobe.? After reviewing her x-ray I saw the consolidation to the left lobe and decided to place her on community-acquired pneumonia protocol with a azithromycin and Rocephin.? Due to from percentage is 78.1.? So in levels 130.? She was found to be negative for influenza A/B and COVID.? She was given an hour long nebulizer treatment and started on Solu-Medrol. Patient improved significantly with able to be weaned to room air. Blood cultures were negative. Patient was discharged in good condition with close outpatient follow-up. She is to com
--- NOTE | 2022-01-04 10:47 | PCRCNOTE ---
Window of time for administration has passed. See next scheduled administration.
[2022-01-04 13:05] VITALS: PULSE 90; RESP 18; O2SAT 94
[2022-01-04] MEDS: FLUTICASONE/UMECLIDIN/VILANTER 100-62.5-25 MCG ELLIPTA 1 PUFF INHALATION (13:24)
== END 2022-01-04 14:35 | disposition home or self-care (01) | DRG 194 ==
LOC: ANHED 11:09 → ANH3MEDSUR 16:39
PROVIDERS: Nurse Practitioner; Admitting Provider Internal Medicine; Emergency Provider Emergency Medicine; PCP Family Medicine; Visit Provider Student in an Organized Health Care Education/Training Program
DX: J18.9 Pneumonia, unspecified organism (principal); E87.1 Hypo-osmolality and hyponatremia; J44.0 Chronic obstructive pulmonary disease with (acute) lower respiratory infection; J44.1 Chronic obstructive pulmonary disease with (acute) exacerbation; K21.9 Gastro-esophageal reflux disease without esophagitis; I10 Essential (primary) hypertension; I48.0 Paroxysmal atrial fibrillation; F31.9 Bipolar disorder, unspecified; G47.33 Obstructive sleep apnea (adult) (pediatric); G62.9 Polyneuropathy, unspecified; Z20.822 Contact with and (suspected) exposure to COVID-19; Z66 Do not resuscitate; Z79.01 Long term (current) use of anticoagulants; Z79.899 Other long term (current) drug therapy; Z87.891 Personal history of nicotine dependence
CPT/HCPCS: 36415; 71046; 80048; 80053; 82570; 83605; 83735; 84300; 85025; 87040; 87070; 87205; 87636; 93005; 94640; 96375; 99285; A9270; J0456; J0696; J2930; J7030

== ENCOUNTER 2022-04-07 22:45 | Emergency (ER) | payer MEDICARE, SELFPAY ==
[2022-04-07 22:56] VITALS: BP 168/99; PULSE 102; RESP 20; TEMP 36.1; O2SAT 100
[2022-04-08] VITALS (14 sets, daily range): BP systolic 140–155; BP diastolic 71–103; PULSE 87–102; RESP 18–36; TEMP 36.6; O2SAT 97–100
--- NOTE | 2022-04-08 01:26 | ED.GENADULT ---
HPI - General Adult General Chief complaint: Epistaxis Stated complaint: nose bleed Time Seen by Provider: 04/08/22 00:19 History of Present Illness HPI narrative: Patient 81-year-old female who presents the emergency department with chief complaint of epistaxis. The patient reports that she is on a DOAC and reports this evening she started having bleeding out of her right nostril. Patient reports that she is been able to control the bleeding but has had some fairly large clots patient denies shortness of breath denies chest pain denies trauma. Related Data Home Medications Medication Instructions Recorded Confirmed diltiazem HCl 240 mg 240 mg PO DAILY 07/05/19 03/30/22 capsule,extended release 24 hr lamotrigine 100 mg tablet 100 mg PO HS 07/05/19 03/30/22 (Lamictal) rivaroxaban 20 mg tablet (Xarelto) 20 mg PO DAILY 07/05/19 03/30/22 eszopiclone 2 mg tablet 2 mg PO HS 01/01/22 03/30/22 losartan 25 mg tablet (Cozaar) 25 mg PO BID 03/30/22 03/30/22 Allergies Allergy/AdvReac Type Severity Reaction Status Date / Time gabapentin Allergy Severe PSYCHOTIC Verified 03/30/22 15:02 BREAK Review of Systems Review of Systems: A 10 system review of systems was completed on the patient and is negative except for what is stated in the HPI. Nursing and ancillary documentation was reviewed. [facility] Past Medical History Medical History Bipolar disorder COPD (chronic obstructive pulmonary disease) Hypertension Neuropathy ANDREY (obstructive sleep apnea) mild, no CPAP Osteoarthritis PAF (paroxysmal atrial fibrillation) Rhinitis Scoliosis Shortness of Breath Surgical History Surgical History H/O exploratory laparotomy History of bunionectomy History of intestinal surgery April 2007 S/P carpal tunnel release Status post left hip replacement August 20, 2012 Total knee replacement status Family History Family History Mother Family history of cardiovascular disease, Onset Age: 74 Hypertension Sibling Hypertension Malignant neoplasm of prostate Other Family history of schizophrenia Social History Social History Social History: She lives alone but her son is approximately half a mi down the road. She is . She has 4 children. 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 She was a former smoker. She rarely drinks alcohol. No illicit drugs code status dnr Smoking status: Former smoker Smoking end date: 02/06/1961 Additional smoking assessment comments: STATES 1PK/WEEK QUIT 1961 Alcohol intake: current Living arrangements: alone Spiritual care concerns: No Exam Narrative: GENERAL: Well-appearing, well-nourished, and in no acute distress. HEAD: Normocephalic, atraumatic. EYES: PERRLA and EOMI. ENT: Nares clear, no rhinorrhea active epistaxis from the right nostril. Mucous membranes moist. NECK: Supple. CHEST: Clear to auscultation. No respiratory distress. HEART: Regular rate and rhythm. No murmur heard. Normal peripheral pulses. ABDOMEN: Soft, nontender, nondistended, normal active bowel sounds. EXTREMITIES: Normal range of motion. No edema. SKIN: Warm, dry, no rash. NEURO: No focal deficits. Alert and oriented x3. PSYCH: Normal mood and affect. Course Course Emergency Course: Differential diagnosis includes coagulopathy, ulceration Bleeding was actively controlled with a rapid Rhino packing device. The patient will be referred to ENT Vital Signs Vital signs: Vital Signs Temperature 36.1 C L 04/07/22 22:56 Pulse Rate 102 H 04/07/22 22:56 Respiratory Rate 20 04/07/22 22:56 Blood Pressure 168/99 H 04/07/22 22:56 Pulse O
== END 2022-04-08 02:51 | disposition home or self-care (01) ==
PROVIDERS: Emergency Provider Emergency Medicine; PCP Family Medicine
DX: R04.0 Epistaxis (principal); I10 Essential (primary) hypertension; J44.9 Chronic obstructive pulmonary disease, unspecified; G47.33 Obstructive sleep apnea (adult) (pediatric); I48.0 Paroxysmal atrial fibrillation; F31.9 Bipolar disorder, unspecified; G62.9 Polyneuropathy, unspecified; Z79.01 Long term (current) use of anticoagulants; Z79.51 Long term (current) use of inhaled steroids
CPT/HCPCS: 30901; 99282

== ENCOUNTER 2022-05-03 09:46 | Outpatient (CLI) | payer MEDICARE, SELFPAY ==
--- NOTE | 2022-05-04 11:26 | WPDPFTINT ---
PFT Procedure Performed PFT Procedure Performed Spirometry with Pre/Post Bronchodilator Plethysmography (Lung Vol) Diffusing Cap (DLCO) Flow Vol Loop PFT Interpretation DOS: 05/03/2022 REQUESTING: Shena Stafford PA-C REASON FOR TESTING: COPD PULMONARY FUNCTION TESTS Results are reliable and reproducible. Spirometry: Pre bronchodilator FEV1 is 0.84 L, 49% predicted, moderately reduced. Pre bronchodilator FVC is 1.89 L, 83%, normal. The FEV1/FVC ratio is 45%, decreased, consistent with obstruction. After bronchodilator administration, FEV1 increases 9%, 0.92 L. After bronchodilator the FVC increases 1%, 1.91 L. These are insignificant changes. Lung volumes: Total lung capacity is 4.66 L, 99% predicted, normal. Residual volume is 2.77 L, 119%, upper limit normal. RV/TLC is 60%, elevated. This is consistent with air trapping. Airway resistance 282%, elevated. Diffusion: DLCO 11.9, 65%, mildly reduced. DLCO /VA is 4.51, 108% predicted, normal. Flow volume loop: There is severe coving of the expiratory limb. IMPRESSION: This study shows moderately severe obstructive ventilatory impairment without significant response to bronchodilator, mild air trapping evidenced by increased RV/TLC, mild diffusion impairment which corrects for alveolar volume.Lack of response to bronchodilator should not preclude use if clinically indicated. Compared to prior study on March 01, 2016 the FEV1 was 1.08 L, 65% of predicted and the FVC was 2.08 L, 86%. Airflow obstruction was present, FEV1/FVC was 52%. There was no significant response to bronchodilator. The total lung capacity was 5.51 L, 127% so the hyperinflation has decreased. Residual volume was 187%, 3.44 L, decreased and normalized. On the prior study the DLCO was 85% predicted and the DLCO/VA was 123% predicted. There is a new mild diffusion impairment. Tabatha Sweeney MD
--- NOTE | 2022-05-04 11:39 | WPDSIXMINUTE ---
Six Minute Walk Procedure Procedure Performed Pulmonary Stress Test (6 min walk) Six Minute Walk Six Minute Walk: DOS: May 032022 REQUESTING: Shena Stafford PA-C REASON FOR TESTING: COPD SIX MINUTE WALK This study was conducted per ATS guidelines. The patient walked while breathing room air and using her cane. Initial saturation was 96%. Pulse was 99 beats per minute. the lowest saturation during the study was 90%. The highest pulse was 117 beats per minute. During recovery saturation returned to baseline, 98%. Pulse was 96. Distance walked was 152 m, 500 ft. This is less than predicted. IMPRESSION: This study shows mild desaturation without jelly hypoxemia. Distance walked is less than expected. No supplemental oxygen is indicated with exertion.
--- NOTE | 2022-05-07 07:31 | WPDSIXMINUTE ---
Six Minute Walk Procedure Procedure Performed Pulmonary Stress Test (6 min walk) Six Minute Walk Six Minute Walk: This is a 6 minute walk test. The test was performed and interpreted in accordance with the 2014 ERS/ATS task force guidelines. Of note the testing was performed with minimal use of a personal cane Findings: The patient's resting room air oxygen saturation measured by pulse oximetry was 96% and heart rate was 99 bpm. Patient ambulated for 152 meters and oxygen saturation remained 90 to 97%. Heart rate at the end of the study was 109 bpm. The patient did not qualify for supplemental oxygen at rest or with ambulation. There are no prior studies for comparison.
--- NOTE | 2022-05-07 07:33 | WPDPFTINT ---
PFT Procedure Performed PFT Procedure Performed Spirometry with Pre/Post Bronchodilator Plethysmography (Lung Vol) Diffusing Cap (DLCO) Flow Vol Loop PFT Interpretation This is a pulmonary function test with pre and post-bronchodilator spirometry, plethysmography and diffusing capacity. The test was performed and results interpreted in accordance with the 2019 and 2005 ATS/ERS Task Force guidelines respectively using the Global Lung Function Initiative-2012 reference equations. Patient demonstrated good effort and cooperation. Reproducibility criteria were met. The quality of the pre bronchodilator spirometry maneuver was Grade A and post bronchodilator spirometry maneuver was Grade A. Findings: Spirometry: There is decreased maximal expiratory airflow at all lung volumes with concave expiratory flow tracing. The contour the inspiratory flow tracing is normal. The pre bronchodilator FVC is 1.89 L, 83% predicted. The pre bronchodilator FEV1 is 0.84 L, 49% predicted. The pre bronchodilator FEV1: FVC ratio is 45%. The post bronchodilator FVC is 1.91 L, representing a 1% increase. The post bronchodilator FEV1 is 0.92 L, representing a 9% increase. The post bronchodilator FEV1: FVC ratio was 48%. Plethysmography: The total lung capacity is 4.66 L, 99% predicted. The functional residual capacity is 3.72 L, 136% predicted. The residual volume is 2.77 L, 119% predicted. Diffusing capacity: The diffusing capacity unadjusted for hemoglobin and carboxyhemoglobin is 11.9, 65% predicted. The diffusing capacity adjusted for alveolar volume is 4.51, 108% predicted. In comparison to previous pulmonary function testing on 03/01/2016 the post bronchodilator FVC is unchanged from 2.05 L to 1.91 L. The post bronchodilator FEV1 is decreased from 1.15 L to 0.92 L. The total lung capacity is decreased from 5.51 L to 4.66 L. The functional residual capacity is decreased from 4.34 L to 3.72 L. The residual volume is decreased from 3.44 L to 2.77 L. The diffusing capacity adjust unadjusted for hemoglobin and carboxyhemoglobin is unchanged from 13.6 to 11.9. The diffusing capacity adjusted for alveolar volume is unchanged from 4.18 to 4.51. Impression: There is a severe obstructive abnormality without significant improvement after inhaling a single dose of albuterol. The lung volumes are normal. the diffusing capacity is normal. In comparison to previous pulmonary function testing on 03/01/2016 there has been a greater than anticipated time dependent decrease in the FVC, FEV1, total lung capacity, functional residual capacity and residual volume with no change in the DLCO. Clinical correlation is recommended.
== END 2022-05-03 09:47 | disposition home or self-care (01) ==
LOC: ANHPFT 09:47
PROVIDERS: PCP Otolaryngology; Visit Provider Physician Assistant
DX: J44.9 Chronic obstructive pulmonary disease, unspecified (principal); R94.2 Abnormal results of pulmonary function studies
CPT/HCPCS: 94060; 94618; 94726; 94729

== ENCOUNTER 2024-01-10 15:33 | Emergency (ER) | payer MEDICARE, SELFPAY ==
--- NOTE | ~2024-01-10 | XR_ITS ---
XR chest 2V Ordering provider: Clarissa Strickland PA-C History: 83 years Female with . weakness . Comparison: None. FINDINGS: MEDIASTINUM: The cardiac silhouette is slightly enlarged. LUNGS: No effusions or pneumothorax. Minimal opacification the lung bases which may indicate atelecta sis versus pneumonia. Bilateral interstitial changes. Underlying fibrotic and emphysematous changes. OTHER: No free air under the diaphragm. Severe kyphosis. Degenerative changes of the spine. IMPRESSION: Minimal opacification the lung bases suggestive of atelectasis versus pneumonia. Cardiomegaly with possible cardiac decompensation. Underlying fibrotic changes. Reviewed, dictated and finalized at location A. KELLER OPERATOR IMPRESSION: Minimal opacification the lung bases suggestive of atelectasis versus pneumonia . Cardiomegaly with possible cardiac decompensation. Underlying fibrotic changes.
[2024-01-10 15:35] VITALS: BP 189/91; PULSE 100; RESP 16; TEMP 36.4; O2SAT 98
--- NOTE | 2024-01-10 17:02 | PC.NURSE ---
Pt only complaint is nausea. [place] provided. Family at bedside.
--- NOTE | 2024-01-10 17:14 | ECG_ITS ---
Test Date: 2024-01-10 18:55:43 Measurements Intervals [place] Rate: 81 P: 0 NC: 0 QRS: 24 QRSD: 95 T: 22 QT: 379 QTc: 442 Interpretive Statements WANDERING PACEMAKER MODERATE VOLTAGE CRITERIA FOR LVH, CONSIDER NORMAL VARIANT [MEETS CRITERIA IN ONE OF: R(aVL), S(V1), R(V5), R(V5/V6)+S(V1)] ABNORMAL RHYTHM ECG No previous ECG available for comparison Electronically Signed On 01-11-2024 09:50:42 INSTRUMENTATION AND CONTROL TECHNICIAN by Chun Malloy M.D.
--- NOTE | 2024-01-10 17:52 | ED_ITS ---
HPI - General Adult General Chief complaint: Unspecified Stated complaint: I feel horrible, I feel really sick Time Seen by Provider: 01/10/24 17:11 Source: patient Mode of arrival: wheelchair Limitations: dementia History of Present Illness HPI narrative: This is an 83-year-old female that presents to the emergency department for feeling generally unwell. Ongoing since this afternoon. She called her son and told him she felt awful. She told him she felt nauseous. She does not report any focal complaints at this time. Related Data Home Medications Medication Instructions Recorded Confirmed diltiazem HCl 240 mg 240 mg PO DAILY 07/05/19 09/23/22 capsule,extended release 24 hr lamotrigine 100 mg tablet 100 mg PO HS 07/05/19 09/23/22 (Lamictal) rivaroxaban 20 mg tablet (Xarelto) 20 mg PO DAILY 07/05/19 09/23/22 eszopiclone 2 mg tablet 2 mg PO HS 01/01/22 09/23/22 losartan 25 mg tablet (Cozaar) 25 mg PO BID 03/30/22 09/23/22 Allergies Allergy/AdvReac Type Severity Reaction Status Date / Time gabapentin Allergy Severe PSYCHOTIC Verified 09/23/22 10:55 BREAK Review of Systems Review of Systems: ROS unobtainable: Yes unobtainable due to medical condition PMFSH Past Medical History Medical History Bipolar disorder COPD (chronic obstructive pulmonary disease) Hypertension Neuropathy ANDREY (obstructive sleep apnea) mild, no CPAP Osteoarthritis PAF (paroxysmal atrial fibrillation) Rhinitis Scoliosis Shortness of Breath Surgical History Surgical History H/O exploratory laparotomy History of bunionectomy History of intestinal surgery April 2007 S/P carpal tunnel release 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 She is . She has 4 children. 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 She was a former smoker. She rarely drinks alcohol. No illicit drugs code status dnr Smoking status: Former smoker Smoking end date: 02/06/1961 Additional smoking assessment comments: STATES 1PK/WEEK QUIT 1961 Alcohol intake: current Substance use: never Substance use type: does not use Lack of Transportation: No Lack of Food: Never True Current Housing: I Have Housing Concerned About Future Housing: No Difficulty Paying Gas/Electric Bills: YES Difficulty Paying for Meds: YES Currently Unemployed: No Education: Bachelor's Degree Difficulty w/ Childcare or Family Care: No Living arrangements: alone Occupation/Education: retired Gender identity (if verbalized by the patient): Female Spiritual care concerns: No Exam Narrative: GENERAL: Elderly, well-nourished, and in no acute distress. HEAD: Normocephalic, atraumatic. EYES: PERRLA and EOMI. ENT: Nares clear, no rhinorrhea or epistaxis. Mucous membranes moist. Oropharynx without tonsillar hypertrophy exudate or other lesions. Bilateral TMs pearly nieto non-bulging NECK: Supple. No adenopathy or masses. CHEST: Clear to auscultation. No respiratory distress. No wheezes rales or rhonchi HEART: Regular rate and rhythm. No murmur heard. Normal peripheral pulses. ABDOMEN: Soft, nontender, nondistended, normal active bowel sounds. EXTREMITIES: Normal range of motion. No edema. SKIN: Warm, dry, no rash. NEURO: No focal deficits. Alert and oriented x2. PSYCH: Normal mood and affect Course Course Emergency Course: patient and family updated on workup and agree with plan of care Vital Signs Vital signs: Vital Signs Temperature 97.5 F L 01/10/24 15:35 Pulse Rate 100 01/10/24 15:35 Respiratory Rate 16 01/10/24 15:35 Blood Pressure 189/91 H 01/10/24 15:35 Pulse Oximetry 98 01/10/24 15:35 Temperature 97.5 F L 01/10/24 15:35 Pulse Rate 100 01/10/24 15:35 Respiratory Rate 16 01/10/24 15:35 Blood Pressure 189/91 H 01/10/24 15:35 Pulse Oximetry 98 01/10/24 15:35 Medical Decision Making MDM Narrative Medical decision making narrative: Patient presents the emergency department for feeling generally unwell. She is afebrile and nontoxic appearing. Blood pressure elevated upon arrival, this down trended without intervention. CBC without leukocytosis. Metabolic panel with hyponatremia, which appears to be chronic for patient. Urine without evidence of infection. COVID, influenza and RSV screens are negative. Chest x-ray with possible pneumonia. Patient and family updated on workup and agree with plan of care. They were given warnings to return to the ER. She does report she has follow up with her PCP next week Differential Diagnosis Differential Diagnosis: Infection, dehydration, electrolyte derangement Vital Signs Vital Signs: Vital Signs Temperature 97.5 F L 01/10/24 15:35 Pulse Rate 100 01/10/24 15:35 Respiratory Rate 16 01/10/24 15:35 Blood Pressure 189/91 H 01/10/24 15:35 Pulse Oximetry 98 01/10/24 15:35 Temperature 97.5 F L 01/10/24 15:35 Pulse Rate 100 01/10/24 15:35 Respiratory Rate 16 01/10/24 15:35 Blood Pressure 189/91 H 01/10/24 15:35 Pulse Oximetry 98 01/10/24 15:35 Lab Data Lab results reviewed: Yes I reviewed the patient's lab results. 01/10/24 17:58 01/10/24 17:58 Labs: Lab Results 01/10/24 01/10/24 Range/Units 17:58 18:18 WBC 5.6 (4.5-10.0) K/mm3 RBC 4.54 (4.2-5.4) M/mm3 Hgb 12.8 (12.0-15.0) g/dL Hct 40.5 (37.0-47.0) % MCV 89.2 (80-100) fl MCH 28.2 (26-34) pg MCHC 31.6 L (32-36) g/dl RDW 15.2 H (11.5-14.5) % Plt Count 312 (150-375) k/mm3 MPV 9.2 (7.4-10.4) fl Immature Gran % (Auto) 0.2 (0-0.5) % Neut % (Auto) 76.7 H (45.5-73.1) % Lymph % (Auto) 8.2 L (18.3-44.2) % [place] % (Auto) 11.2 H (2.6-8.5) % Eos % (Auto) 3.2 (0-4.4) % Baso % (Auto) 0.5 (0.2-1.2) % Lymph # (Auto) 0.46 L (0.9-3.2) K/mm3 [place] # (Auto) 0.6 (0.1-0.6) K/mm3 Eos # (Auto) 0.2 (0-0.3) K/mm3 Baso # (Auto) 0.0 (0.0-0.1) K/mm3 Abs Immat Gran (auto) 0.01 (0.00-0.031) K/mm3 Absolute Neuts (auto) 4.3 (1.3-6.7) K/mm3 Absolute Nucleated RBC 0.000 (0.0-0.012) K/mm3 Nucleated RBC % 0.0 (0.0-0.2) % Sodium 131 L (137-145) mmol/L Potassium 4.1 (3.4-5.0) mmol/L Chloride 100 (98-107) mmol/L Carbon Dioxide 29 (22-30) mmol/L Anion Gap 2 L (4-12) mmol/L BUN 20 H (7-17) mg/dL Creatinine 0.60 L (0.7-1.0) mg/dL Estim Creat Clear Calc Not Reportable Estimated GFR > 60 (59 - ) Glucose 100 (65-110) mg/dL Calcium 9.2 (8.4-10.2) mg/dL Total Bilirubin 0.3 (0.2-1.3) mg/dL AST 27 (14-36) U/L ALT 24 (6-35) U/L Alkaline Phosphatase 85 (38-126) U/L Troponin I < 0.012 (0.000-0.034) ng/mL Total Protein 6.0 L (6.3-8.2) g/dL Albumin 3.9 (3.5-5.1) g/dL Lipase 92 (23-300) U/L TSH (Reflex) 1.240 (0.465-4.68) uIU/mL Urine Color Yellow (Yellow) Urine Appearance Clear (Clear) Urine pH 7.5 (5.0-9.0) Ur Specific [place] 1.010 (1.001-1.035) Urine Protein Negative (Negative) mg/dL Urine Glucose (UA) Negative (Negative) mg/dL Urine Ketones Negative (Negative) mg/dL Ur Blood (Man) Negative (Negative) Urine Nitrate Negative (Negative) Urine Bilirubin Negative (Negative) Urine Urobilinogen 0.2 (<2.0) mg/dL Leukocyte Esterase Rfl Negative (Negative) ASH/UL Influenza A (RT-PCR) Negative (Negative) Influenza B (RT-PCR) Negative (Negative) RSV (RT-PCR) Negative (Negative) SARS-CoV-2 RNA (RT-PCR) Negative (Negative) Imaging Data Radiologist's impression: ITS Impressions Chest X-Ray 01/10/24 19:07 IMPRESSION: Minimal opacification the lung bases suggestive of atelectasis versus pneumonia. Cardiomegaly with possible cardiac decompensation. Underlying fibrotic changes. ECG Data EKG #1: ECG completion date: 01/10/24 EKG Interpretation: normal rate, atrial fibrillation, no ST changes and normal QT Critical Care Time Critical Care Time Critical Care Time: No Discharge Plan Discharge Clinical Impression: Pneumonia Qualifiers: Pneumonia type: due to unspecified organism Laterality: bilateral Lung location: lower lobe of lung Qualified Code(s): J18.9 - Pneumonia, unspecified organism Patient Disposition: Home, Self-Care Condition: Stable Instructions: Antibiotic Form, Community Acquired Pneumonia (ED) Additional Instructions: Return to the emergency department for worsening symptoms, or any other concerns Remain well-hydrated, get plenty of rest. Take Tylenol or Motrin [id number] for pain as needed. Take oral antibiotics as prescribed Follow up with your primary care doctor Prescriptions: New azithromycin 250 mg tablet See Rx Instructions .ROUTE .COMPLEX Qty: 6 0RF Rx Instructions: For 250 mg dose pack: take 500 mg today (day 1), then 250 mg for 4 days (days 2-5) amoxicillin 875 mg tablet 875 mg PO Q12H 5 Days Qty: 10 0RF No Action diltiazem HCl 240 mg capsule,extended release 24hr 240 mg PO DAILY Xarelto 20 mg tablet 20 mg PO DAILY Rx Instructions: must administer with evening meal lamotrigine [Lamictal] 100 mg tablet 100 mg PO HS losartan [Cozaar] 25 mg tablet 25 mg PO BID acetaminophen [Tylenol Extra Strength] 500 mg tablet 500 mg PO Q6H PRN (Reason: pain) Qty: 30 0RF eszopiclone 2 mg tablet 2 mg PO HS albuterol sulfate [ProAir HFA] 90 mcg/actuation HFA aerosol inhaler 1 - 2 puff INHALATION Q4-6H PRN (Reason: shortness of breath or wheezing) Qty: 8.5 2RF omeprazole 20 mg capsule,delayed release(DR/EC) See Rx Instructions .ROUTE .COMPLEX Qty: 200 2RF Dose Instruction: TAKE 1 CAPSULE BY MOUTH TWICE DAILY Rx Instructions: TAKE 1 CAPSULE BY MOUTH TWICE DAILY Trelegy Ellipta 100-62.5-25 mcg blister with device See Rx Instructions .ROUTE .COMPLEX Qty: 180 0RF Hold Instructions: Hold during trial of Breztri samples Dose Instruction: USE 1 INHALATION BY MOUTH EVERY 24 HOURS RINSE MOUTH AND SPIT AFTER EACH USE Rx Instructions: USE 1 INHALATION BY MOUTH EVERY 24 HOURS RINSE MOUTH AND SPIT AFTER EACH USE Follow-up/Referrals: Andrez Moreland M.D. [Primary Care Provider] -
[2024-01-10 18:04] LABS: Basophils Percent Auto 0.5 % (0.2-1.2); Eosinophils Absolute Auto 0.2 K/mm3 (0-0.3); Eosinophils Percent Auto 3.2 % (0-4.4); Hematocrit 40.5 % (37.0-47.0); Hemoglobin 12.8 g/dL (12.0-15.0); Immature Granulocyte Absolute 0.01 K/mm3 (0.00-0.031); Immature Granulocyte Percent A 0.2 % (0-0.5); Lymphocytes Absolute Auto 0.46 K/mm3 (0.9-3.2); Lymphocytes Percent Auto 8.2 % (18.3-44.2); Mean Corpuscular HGB Conc 31.6 g/dl (32-36); Mean Corpuscular Hemoglobin 28.2 pg (26-34); Mean Corpuscular Volume 89.2 fl (80-100); Mean Platelet Volume 9.2 fl (7.4-10.4); Monocytes Absolute Auto 0.6 K/mm3 (0.1-0.6); Monocytes Percent Auto 11.2 % (2.6-8.5); Neutrophils Absolute Auto 4.3 K/mm3 (1.3-6.7); Neutrophils Percent Auto 76.7 % (45.5-73.1); Platelet Count Result 312 k/mm3 (150-375); Red Blood Count 4.54 M/mm3 (4.2-5.4); Red Cell Distribution Width 15.2 % (11.5-14.5); White Blood Count 5.6 K/mm3 (4.5-10.0)
[2024-01-10 18:14] LABS: Alanine Aminotransferase 24 U/L (6-35); Albumin Level 3.9 g/dL (3.5-5.1); Alkaline Phosphatase 85 U/L (38-126); Anion Gap 2 mmol/L (4-12); Aspartate Amino Transferase 27 U/L (14-36); Bilirubin,Total 0.3 mg/dL (0.2-1.3); Blood Urea Nitrogen 20 mg/dL (7-17); Calcium 9.2 mg/dL (8.4-10.2); Carbon Dioxide 29 mmol/L (22-30); Chloride 100 mmol/L (98-107); Estimated Glomerular Filt Rate > 60; Glucose 100 mg/dL (65-110); Potassium 4.1 mmol/L (3.4-5.0); Sodium 131 mmol/L (137-145)
[2024-01-10 18:25] LABS: Add Urine Microscopic? NO; Appearance Urine Clear (Clear); Bilirubin Urine Negative (Negative); Blood Urine Negative (Negative); Color Urine Yellow (Yellow); Glucose Urine UA Negative (Negative); Ketones Urine Negative (Negative); Leukocyte Esterase Ur Negative LEU/UL (Negative); Nitrate Urine Negative (Negative); Protein Urine Negative (Negative); Urobilinogen Urine 0.2 mg/dL (<2.0); pH Urine 7.5 (5.0-9.0)
[2024-01-10 18:33] LABS: Lipase 92 U/L (23-300)
[2024-01-10 18:40] LABS: Influenza A QL RT-PCR Negative (Negative); Influenza B QL RT-PCR Negative (Negative); RSV RNA, RT-PCR Negative (Negative); SARS-CoV-2 RNA PCR Negative (Negative)
[2024-01-10 18:45] VITALS: BP 145/83; PULSE 85; RESP 16; O2SAT 97
[2024-01-10] MEDS: ONDANSETRON INJ 4 MG/2 ML VIAL IV PUSH (18:46)
[2024-01-10 20:12] LABS: Troponin I < 0.012 ng/mL (0.000-0.034)
[2024-01-10 20:45] VITALS: BP 163/119; PULSE 85; RESP 16; O2SAT 97
== END 2024-01-10 21:05 | disposition home or self-care (01) ==
PROVIDERS: Emergency Provider Physician Assistant; PCP Otolaryngology
DX: J18.9 Pneumonia, unspecified organism (principal); Z20.822 Contact with and (suspected) exposure to COVID-19; J44.9 Chronic obstructive pulmonary disease, unspecified; I10 Essential (primary) hypertension; I48.0 Paroxysmal atrial fibrillation; G62.9 Polyneuropathy, unspecified; G47.33 Obstructive sleep apnea (adult) (pediatric); M19.90 Unspecified osteoarthritis, unspecified site; F31.9 Bipolar disorder, unspecified; Z87.891 Personal history of nicotine dependence; Z96.642 Presence of left artificial hip joint; Z96.659 Presence of unspecified artificial knee joint; Z79.01 Long term (current) use of anticoagulants; Z79.899 Other long term (current) drug therapy; I49.8 Other specified cardiac arrhythmias
CPT/HCPCS: 36415; 71046; 80053; 81003; 83690; 84443; 84484; 85025; 87637; 93005; 96374; 99284; J2405

== ENCOUNTER 2024-02-15 05:02 | Emergency (ER) | payer MEDICARE, SELFPAY ==
[2024-02-15] VITALS (10 sets, daily range): BP systolic 124–176; BP diastolic 82–103; PULSE 90–101; RESP 14–26; TEMP 36.6; O2SAT 92–95
--- NOTE | ~2024-02-15 | XR_ITS ---
EXAMINATION: XR hip RT 2V w AP pelvis DATE: 02/15/2024 06:14 INDICATION: Right hip pain. Fall. TECHNIQUE: An anteroposterior view of the pelvis and 2 views of right hip were obtained. COMPARISON: Pelvis and left hip radiographs 09/28/2021 FINDINGS: There is a total left hip arthroplasty in near-anatomic alignment. There is lumbar dextrosc oliosis and severe spondylosis. There is a comminuted intertrochanteric fracture of proximal right fe mur. The main distal fracture fragment demonstrates shortening, 39 degrees varus angulation, and 90 d egrees posterior angulation. There is moderate right hip osteoarthritis. IMPRESSION: 1. Comminuted intertrochanteric fracture of proximal right femur. 2. Moderate right hip osteoarthritis. 3. Total left hip arthroplasty in near-anatomic alignment. Reviewed, dictated and finalized at location A. ESTATE CLERK
--- NOTE | ~2024-02-15 | XR_ITS ---
EXAMINATION: XR chest 1V DATE: 02/15/2024 06:14 INDICATION: Trauma. TECHNIQUE: A single frontal view of the chest was obtained. COMPARISON: Chest 2 views 01/10/2024, chest CT 10/06/2014 FINDINGS: There is a diffuse interstitial pattern in the lungs. No pleural effusion or pneumothorax. The heart size is normal. There are old healed right rib fractures. IMPRESSION: 1. Stable diffuse interstitial pattern in the lungs, consistent with mild chronic lung disease versus mild pulmonary edema. Reviewed, dictated and finalized at location A. GRADUATE INTERNSHIP IMPRESSION: 1. Stable diffuse interstitial pattern in the lungs, consistent with mild chron ic lung disease versus mild pulmonary edema.
--- NOTE | ~2024-02-15 | CT_ITS ---
EXAMINATION: CT hip RT wo con DATE: 02/15/2024 08:43 INDICATION: Intertrochanteric fracture of proximal right femur. TECHNIQUE: Computed tomography (CT) of the right hip was performed without intravenous contrast. Auto mated exposure control and iterative reconstruction technique were employed. The dose-length product was 246.10 mGy-cm. COMPARISON: Right hip radiographs 02/15/2024 FINDINGS: There is a comminuted intertrochanteric fracture of proximal right femur. The main distal f racture fragment demonstrates varus and posterior angulation, lateral displacement, and shortening. T here is severe right hip osteoarthritis. There is a total left hip arthroplasty in near-anatomic alig nment. Osteitis pubis is noted. There is a Miller catheter in expected position. IMPRESSION: 1. Comminuted intertrochanteric fracture of proximal right femur. 2. Severe right hip osteoarthritis. 3. Total left hip arthroplasty in near-anatomic alignment. Reviewed, dictated and finalized at location A. ER SPRINKLER
--- NOTE | ~2024-02-15 | XR_ITS ---
EXAMINATION: XR knee RT 3V DATE: 02/15/2024 06:14 INDICATION: Right knee pain. Fall. TECHNIQUE: 3 views of right knee were obtained. COMPARISON: Right knee radiographs 08/26/2015 FINDINGS: There is a total right knee arthroplasty without patellar resurfacing in near-anatomic alig nment. There is cortical irregularity at medial aspect of femoral metaphysis. No periprosthetic lucen cy to suggest loosening or infection. There is a small knee joint effusion. IMPRESSION: 1. Cortical irregularity at medial aspect of femoral metaphysis, which may be a nondisplaced fracture or an enthesophyte. Consider CT. 2. Total right knee arthroplasty in near-anatomic alignment. 3. Small knee joint effusion. Reviewed, dictated and finalized at location A. GRATED MARKETING SPECIALIST
--- NOTE | ~2024-02-15 | CT_ITS ---
EXAMINATION: CT cervical spine wo con DATE: 02/15/2024 06:06 INDICATION: Head injury. Neck injury. TECHNIQUE: Computed tomography (CT) of the cervical spine was performed without intravenous contrast. Automated exposure control and iterative reconstruction technique were employed. The dose-length pro duct was 109.46 mGy-cm. COMPARISON: None FINDINGS: There is mild scarring at the lung apices. C1 ring is ununited posteriorly, a normal varian t. There is spina bifida occulta at C2. Alignment is normal. Vertebral body heights are normal. There is mildly decreased disc height at C2-C3 and severely decreased disc height from C3-C4 through C6-C7 . The following disc levels are specifically discussed: C2-C3: There is moderate bilateral uncovertebral joint osteoarthritis. There is severe bilateral face t joint osteoarthritis. There is mild right neural foraminal stenosis. There is no central canal sten osis. C3-C4: There is severe bilateral uncovertebral joint osteoarthritis. There is severe bilateral facet joint osteoarthritis. There is mild bilateral neural foraminal stenosis. There is mild central canal stenosis. C4-C5: There is severe bilateral uncovertebral joint osteoarthritis. There is severe bilateral facet joint osteoarthritis. There is mild bilateral neural foraminal stenosis. There is mild central canal stenosis. C5-C6: There is severe bilateral uncovertebral joint osteoarthritis. There is severe right and modera te left facet joint osteoarthritis. There is mild bilateral neural foraminal stenosis. There is mild central canal stenosis. C6-C7: There is severe bilateral uncovertebral joint osteoarthritis. There is severe bilateral facet joint osteoarthritis. There is mild bilateral neural foraminal stenosis. There is mild central canal stenosis. C7-T1: There is no uncovertebral joint osteoarthritis. There is severe bilateral facet joint osteoart hritis. There is no neural foraminal stenosis. There is no central canal stenosis. IMPRESSION: 1. No fracture. 2. Severe cervical spondylosis. Reviewed, dictated and finalized at location A. R CUTTER OPERATOR
--- NOTE | ~2024-02-15 | CT_ITS ---
EXAMINATION: CT brain wo con DATE: 02/15/2024 06:05 INDICATION: Head injury. TECHNIQUE: Computed tomography (CT) of the head was performed without intravenous contrast. The mA wa s adjusted according to patient size. Iterative reconstruction technique was employed. The dose-lengt h product was 756.67 mGy-cm. COMPARISON: Head CT 11/18/2016 FINDINGS: There are scattered areas of low attenuation in the cerebral white matter. There is no intr acranial hemorrhage, acute infarction, or abnormal intracranial mass lesion. The ventricles are radha l in size. There are likely changes of ocular lens replacement surgeries. There is mild mucosal thick ening in the paranasal sinuses. The mastoid air cells are normal. IMPRESSION: 1. Worsened extensive nonspecific cerebral white matter disease, which likely represents chronic smal l vessel ischemic disease. Reviewed, dictated and finalized at location A. L MACHINE SETTER IMPRESSION: 1. Worsened extensive nonspecific cerebral white matter disease, which likely r epresents chronic small vessel ischemic disease.
--- NOTE | ~2024-02-15 | CT_ITS ---
EXAMINATION: CT knee RT wo con DATE: 02/15/2024 08:43 INDICATION: Right knee pain. Fall. TECHNIQUE: Computed tomography (CT) of the right knee was performed without intravenous contrast. Aut omated exposure control and iterative reconstruction technique were employed. The dose-length product was 420.83 mGy-cm. COMPARISON: Right knee radiographs 02/15/2024 FINDINGS: There is a total right knee arthroplasty without patellar resurfacing in near-anatomic alig nment. No periprosthetic lucency to suggest loosening or infection. No fracture. There is a small kne e joint effusion. IMPRESSION: 1. No fracture. 2. Total right knee arthroplasty in near-anatomic alignment. 3. Small knee joint effusion. Reviewed, dictated and finalized at location A. R VEHICLE OPERATOR ROAD SUPERVISOR
[2024-02-15] MEDS: HYDROmorphone HCL INJ (*CRX) 1 MG/ML SYR IV PUSH ×2 (05:22→06:26)
--- NOTE | 2024-02-15 06:14 | ED_ITS ---
HPI - General Adult General Chief complaint: Fall Stated complaint: R HIP PAIN S/P FALL Time Seen by Provider: 02/15/24 05:14 History of Present Illness HPI narrative: Patient 83-year-old female who presents emergency department chief complaint of ground level fall. Patient reports she was in the kitchen reports that she has pain in her right hip and down her right knee patient reports that she is unsure why she fell reports that her hip hurts with any kind of movement. Patient was given morphine by EMS prior to arrival reports he still having severe pain. Patient is on an anticoagulant Related Data Home Medications ?Medication ?Instructions ?Recorded ?Confirmed ?Last Taken ?Type diltiazem HCl 240 mg 240 mg PO DAILY 07/05/19 02/06/24 01/01/22 07:00 History capsule,extended release 24 hr lamotrigine 100 mg tablet 100 mg PO HS 07/05/19 02/06/24 12/30/21 18:00 History (Lamictal) rivaroxaban 20 mg tablet (Xarelto) 20 mg PO DAILY 07/05/19 02/06/24 09/30/19 History eszopiclone 2 mg tablet 2 mg PO HS 01/01/22 02/06/24 Unknown History losartan 25 mg tablet (Cozaar) 25 mg PO BID 03/30/22 02/06/24 Unknown History Allergies Allergy/AdvReac Type Severity Reaction Status Date / Time gabapentin Allergy Severe PSYCHOTIC Verified 09/23/22 10:55 BREAK Review of Systems Review of Systems: A 10 system review of systems was completed on the patient and is negative except for what is stated in the HPI. Nursing and ancillary documentation was reviewed. [facility] Past Medical History Medical History COPD (chronic obstructive pulmonary disease) Bipolar disorder Scoliosis ANDREY (obstructive sleep apnea) mild, no CPAP Neuropathy Osteoarthritis Hypertension PAF (paroxysmal atrial fibrillation) Rhinitis Shortness of Breath Surgical History Surgical History H/O exploratory laparotomy S/P carpal tunnel release History of bunionectomy Total knee replacement status History of intestinal surgery April 2007 Status post left hip replacement August 20, 2012 Family History Family History Mother Family history of cardiovascular disease, Onset Age: 74 Hypertension Sibling Hypertension Malignant neoplasm of prostate Other Family history of schizophrenia Social History Social History Social History: She lives alone but her son is approximately half a mi down the road. She is . She has 4 children. 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 She was a former smoker. She rarely drinks alcohol. No illicit drugs code status dnr Smoking status: Former smoker Smoking end date: 02/06/1961 Additional smoking assessment comments: STATES 1PK/WEEK QUIT 1961 Alcohol intake: current Substance use: never Substance use type: does not use Lack of Transportation: No Lack of Food: Never True Current Housing: I Have Housing Concerned About Future Housing: No Difficulty Paying Gas/Electric Bills: YES Difficulty Paying for Meds: YES Currently Unemployed: No Education: Bachelor's Degree Difficulty w/ Childcare or Family Care: No Living arrangements: alone Occupation/Education: retired Gender identity (if verbalized by the patient): Female Spiritual care concerns: No Exam Narrative: GENERAL: Well-appearing, well-nourished, and in moderate acute pain distress. HEAD: Normocephalic, atraumatic. EYES: PERRLA and EOMI. ENT: Nares clear, no rhinorrhea or epistaxis. Mucous membranes moist. NECK: Supple. CHEST: Clear to auscultation. No respiratory distress. HEART: Regular rate and rhythm. No murmur heard. Normal peripheral pulses. ABDOMEN: Soft, nontender, nondistended, normal active bowel sounds. EXTREMITIES: Normal range of motion in all extremities except for right lower extremity right lower extremity is held flexed and rotated tenderness to palpation of the right hip in the right knee. No edema. SKIN: Warm, dry, no rash. NEURO: No focal deficits. Alert and oriented x3. PSYCH: Normal mood and affect. Course Vital Signs Vital signs: Vital Signs Temperature 36.6 C 02/15/24 05:02 Pulse Rate 99 02/15/24 05:02 Respiratory Rate 26 H 02/15/24 05:02 Blood Pressure 176/103 H 02/15/24 05:02 Pulse Oximetry 92 02/15/24 05:02 Oxygen Delivery Room Air 02/15/24 05:02 Temperature 36.6 C 02/15/24 05:02 Pulse Rate 99 02/15/24 05:02 Respiratory Rate 26 H 02/15/24 05:02 Blood Pressure 176/103 H 02/15/24 05:02 Pulse Oximetry 95 02/15/24 05:39 Oxygen Delivery Nasal Cannula 02/15/24 05:39 Oxygen Flow Rate 2 02/15/24 05:39 Medical Decision Making Vital Signs Vital Signs: Vital Signs Temperature 36.6 C 02/15/24 05:02 Pulse Rate 99 02/15/24 05:02 Respiratory Rate 26 H 02/15/24 05:02 Blood Pressure 176/103 H 02/15/24 05:02 Pulse Oximetry 92 02/15/24 05:02 Oxygen Delivery Room Air 02/15/24 05:02 Temperature 36.6 C 02/15/24 05:02 Pulse Rate 99 02/15/24 05:02 Respiratory Rate H 02/15/24 05:02 Blood Pressure 176/103 H 02/15/24 05:02 Pulse Oximetry 95 02/15/24 05:39 Oxygen Delivery Nasal Cannula 02/15/24 05:39 Oxygen Flow Rate 2 02/15/24 05:39 Discharge Plan Discharge Patient Language: Mozambican Prescriptions: No Action diltiazem HCl 240 mg capsule,extended release 24hr 240 mg PO DAILY Xarelto 20 mg tablet 20 mg PO DAILY Rx Instructions: must administer with evening meal lamotrigine [Lamictal] 100 mg tablet 100 mg PO HS losartan [Cozaar] 25 mg tablet 25 mg PO BID Trelegy Ellipta 100-62.5-25 mcg blister with device 1 inh inhalation Q24H Qty: 180 3RF Rx Instructions: Rinse mouth and spit after each use. azithromycin 250 mg tablet See Rx Instructions .ROUTE .COMPLEX Qty: 6 0RF Rx Instructions: For 250 mg dose pack: take 500 mg today (day 1), then 250 mg for 4 days (days 2-5) amoxicillin 875 mg tablet 875 mg PO Q12H 5 Days Qty: 10 0RF acetaminophen [Tylenol Extra Strength] 500 mg tablet 500 mg PO Q6H PRN (Reason: pain) Qty: 30 0RF eszopiclone 2 mg tablet 2 mg PO HS albuterol sulfate [ProAir HFA] 90 mcg/actuation HFA aerosol inhaler 1 - 2 puff INHALATION Q4-6H PRN (Reason: shortness of breath or wheezing) Qty: 8.5 2RF omeprazole 20 mg capsule,delayed release(DR/EC) See Rx Instructions .ROUTE .COMPLEX Qty: 200 2RF Dose Instruction: TAKE 1 CAPSULE BY MOUTH TWICE DAILY Rx Instructions: TAKE 1 CAPSULE BY MOUTH TWICE DAILY Follow-up/Referrals: Andrez Moreland M.D. [Primary Care Provider] -
[2024-02-15 06:31] LABS: Basophils Percent Auto 0.5 % (0.2-1.2); Eosinophils Absolute Auto 0.2 K/mm3 (0-0.3); Eosinophils Percent Auto 1.7 % (0-4.4); Hematocrit 41.8 % (37.0-47.0); Hemoglobin 13.3 g/dL (12.0-15.0); Immature Granulocyte Absolute 0.04 K/mm3 (0.00-0.031); Immature Granulocyte Percent A 0.5 % (0-0.5); Lymphocytes Absolute Auto 0.57 K/mm3 (0.9-3.2); Lymphocytes Percent Auto 6.5 % (18.3-44.2); Mean Corpuscular HGB Conc 31.8 g/dl (32-36); Mean Corpuscular Hemoglobin 28.9 pg (26-34); Mean Corpuscular Volume 90.9 fl (80-100); Mean Platelet Volume 9.5 fl (7.4-10.4); Monocytes Absolute Auto 0.8 K/mm3 (0.1-0.6); Monocytes Percent Auto 8.6 % (2.6-8.5); Neutrophils Absolute Auto 7.2 K/mm3 (1.3-6.7); Neutrophils Percent Auto 82.2 % (45.5-73.1); Platelet Count Result 337 k/mm3 (150-375); Red Cell Distribution Width 16.3 % (11.5-14.5); White Blood Count 8.8 K/mm3 (4.5-10.0)
[2024-02-15 06:39] LABS: Alanine Aminotransferase 24 U/L (6-35); Alkaline Phosphatase 90 U/L (38-126); Anion Gap 2 mmol/L (4-12); Aspartate Amino Transferase 27 U/L (14-36); Bilirubin,Total 0.4 mg/dL (0.2-1.3); Blood Urea Nitrogen 20 mg/dL (7-17); Calcium 9.1 mg/dL (8.4-10.2); Carbon Dioxide 31 mmol/L (22-30); Chloride 98 mmol/L (98-107); Estimated CRCL calculation 76 ml/min; Estimated Glomerular Filt Rate > 60; Glucose 146 mg/dL (65-110); Potassium 4.4 mmol/L (3.4-5.0); Sodium 131 mmol/L (137-145)
[2024-02-15 06:42] LABS: INR 0.9; Prothrombin Time 12.1 Seconds (11.1-14.7)
[2024-02-15 06:43] LABS: Partial Thromboplastin Time 24.6 Seconds (22.3-36.8)
[2024-02-15 07:14] LABS: Add Urine Microscopic? YES; Appearance Urine Cloudy (Clear); Bacteria Urine None Seen /hpf; Bilirubin Urine Negative (Negative); Blood Urine Negative (Negative); Color Urine Yellow (Yellow); Glucose Urine UA Negative (Negative); Ketones Urine Negative (Negative); Leukocyte Esterase Ur Trace LEU/UL (Negative); Nitrate Urine Negative (Negative); Non Pathogenic Casts 0-2; Protein Urine 1+ mg/dL (Negative); RBC Urine 0-2 /hpf (0-2); Specific Grav Ur 1.009 (1.001-1.035); Squamous Epithelial Cell Urine None Seen /hpf (Few); Urobilinogen Urine 0.2 mg/dL (<2.0); pH Urine 7.5 (5.0-9.0)
--- NOTE | 2024-02-15 08:13 | PC.NURSE ---
unable to obtain EKG due to patient positioning and pain. MD Guerrero aware at this time.
--- NOTE | 2024-02-15 10:32 | PC.NURSE ---
spoke with Dustin (son) about patient being transferred to [facility] for ortho. Son gave consent to Jacob and this RN for transfer to [facility].
[2024-02-15] MEDS: HYDROmorphone HCL INJ (*CRX) 1 MG/ML SYR 0.5 MG IV PUSH (13:23)
--- OUTSIDE RECORDS SUMMARY | 2024-02-22 18:38 | XMS_ITS | Continuity of Care Document ---
Author Organization [place] - [facility] Address [address] [place] [address] Care Team Providers Care Miller Head Assistant Wet Process Name Role Phone PRISCILLA TENORIO Primary Care Provider PRISCILLA TENORIO Referring Provider Assessment No assessment recorded. Plan of Treatment Reminders Order Date Submit Date Provider Last Modified By Organization Details Last Modified Time Details Appointments Follow Up 15 2024 02:30P NAVARRO Naik Not available Not available Not available Lab lipid panel, serum [address] (Lab), [address] [place], [address], 12/26/2023 08:30:38 CMP, serum or plasma [address] (Lab), [address] [place], [address], 12/26/2023 08:30:38 CK (creatine kinase), total, serum [address] (Lab), [address] [place], [address], 12/26/2023 08:30:38 vitamin B12 + folate, serum or blood [address] (Lab), [address] [place], [address], 12/26/2023 08:30:38 vitamin D3, 25-hydrox y, serum [address] (Lab), [address] [place], [address], 12/26/2023 08:30:38 CBC w/ auto diff [address] (Lab), [address] [place], [address], 12/26/2023 08:30:39 glycohemo globin, total, blood [address] (Lab), [address] [place], [address], 12/26/2023 08:30:39 TSH, serum or plasma [address] (Lab), [address] [place], [address], 12/26/2023 08:30:38 T4, free, serum [address] (Lab), [address] [place], [address], 12/26/2023 08:30:38 Referral None recorded. Procedures None recorded. Surgeries None recorded. Imaging None recorded. Medication Orders lamotrigi ne 150 mg tablet 2023 024 [email or web address] 00 [facility][id number], [address] [place], [address], 12/20/2023 15:30:13 Patient TargetsNo targets recorded. Patient InstructionsNo instructions recorded. Reason for Referral None Reported. Problems Name Problem SNOMED Code Status Onset Date Resolution Date Notes Provider Name and Address Organization Details Recorded Time Injury of ankle 119287966 Active Not Available [facility] 3 08:46:42 Chronic obstructi ve pulmonary disease 52838784 Completed Melita Bill MD [address] [facility], [place] [address], [place], [address] , [facility] [employer] [facility] 3 15:22:05 Bipolar disorder 81578442 Active Not Available [facility] 3 08:46:42 Acute sinusitis 12844915 Active Not Available [facility] 3 08:46:42 Asthma 885186610 Active Not Available [facility] 3 08:46:42 Incomplet e uterovagi nal prolapse 416225111 Active Not Available [facility] 3 08:46:42 Skeletal muscle tender 17097040 Active Not Available [facility] 3 08:46:42 Osteoarth ritis of knee 575475461 Active Not Available [facility] 3 08:46:42 Urinary symptoms 208300252 Active Not Available [facility] 3 08:46:43 Headache 08584806 Active Not Available [facility] 3 08:46:43 Cystocele 166958436 Active Not Available [facility] 3 08:46:43 Tremor 62196321 Active Not Available [facility] 3 08:46:43 Complaini ng of insomnia Active Not Available [facility] 3 08:46:43 Low back pain 030520805 Active Not Available [facility] 3 08:46:43 Pain in left lower limb 946164051 Active Not Available [facility] 3 08:46:43 Back problem 729949710 Active Not Available [facility] 3 08:46:43 Enthesopa thy of hip region 66374455 Active Not Available [facility] 3 08:46:43 Knee pain Active Not Available [facility] 3 08:46:43 Depressiv e disorder 88126135 Active Not Available [facility] 3 08:46:44 Arthritis of knee 741944023 Active Not Available [facility] 3 08:46:44 Feels hot 129846283 Active Not Available [facility] 3 08:46:44 Hypertens lizandro disorder 96726555 Active Not Available [facility] 3 08:46:44 Neuropath y 651214775 Active Not Available [facility] 3 08:46:44 Osteoarth ritis 868962709 Active Not Available [facility] 3 08:46:44 Periphera l vascular disease 939810822 Active Not Available [facility] 3 08:46:44 Epidermoi d cyst of skin 928044411 Active Not Available [facility] 3 08:46:44 Chronic atrial fibrillat ion 578033723 Active Not Available [facility] 3 08:46:44 Herniatio n of rectum into vagina 948872308 Active Not Available [facility] 3 08:46:45 Anxiety 94533912 Active Not Available [facility] 3 08:46:45 Hip pain 13633012 Active Not Available [facility] 3 08:46:45 Atrial fibrillat ion 19157361 Active Not Available [facility] 3 08:46:45 Hoarse 63706652 Active Not Available [facility] 3 08:46:45 Wheezing 15290743 Active Not Available [facility] 3 08:46:45 Essential hypertens ion 77466133 Active Not Available [facility] 3 08:46:45 Osteoporo sis 13923214 Active Not Available [facility] 3 08:46:46 Candidias is of mouth 35997092 Active Not Available [facility] 3 08:46:46 Sprain of medial collatera l ligament of knee 09298553 Active Not Available [facility] 3 08:46:46 Chronic rhinitis 94158334 Active Not Available [facility] 3 08:46:46 Urge incontine nce of urine 97111801 Active Not Available [facility] 3 08:46:46 Breast lump 91144186 Active Not Available [facility] 3 08:46:46 Skin lesion 09779838 Active Not Available [facility] 3 08:46:47 COVID-19 139515252 Active 2022 Melita Bill MD [address], [place], [address] , [employer] 3 12:37:53 Persisten t insomnia 839367706 Active 2022 Melita Bill MD [address], [place], [address] , [employer] 3 14:56:22 Chronic obstructi ve pulmonary disease 32645080 Active 2022 Melita Bill MD [address], [place], [address] , [employer] 3 15:22:04 Kyphosis of thoracic spine 031727538 Active 2022 Melita Bill MD [address], [place], [address] , [employer] 3 07:00:43 Memory impairmen t 683485262 Active 2022 Melita Bill MD [address], [place], [address] , [employer] 3 17:01:46 Mixed anxiety and depressiv e disorder 113820209 Active 2022 Melita Bill MD [address], [place], [address] , [employer] 3 17:02:24 Overactiv e urinary bladder 593262909 Active 2022 Melita Bill MD [address], [place], [address] , [employer] 3 18:47:49 Taking multiple medicatio ns for chronic disease 63665214422 4108 Active 2023 NAVARRO Aragon [address], [place], [address] , [employer] 4 15:55:12 Fatigue 24841643 Active 2023 NAVARRO Aragon [address], [place], [address] , [facility] [employer] [facility] 4 15:57:01 Adult health examinati on Active 2023 NAVARRO Aragon [address], [place], [address] , [facility] [employer] [facility] 4 15:58:02 Notes:History of TMJ Chronic Pain Syndrome-has follow with pain management Problem Notes None recorded. Procedures Surgical History Date Name Laterality Status Provider Name and Address Organization Details Recorded Time total replacement of hip completed Not Available [facility] 04/06/2022 08:43:24 arthroplasty of knee completed Not Available [facility] 04/06/2022 08:43:24 repair of cystocele completed Not Available [facility] 04/06/2022 08:43:24 Imaging Results None recorded. Procedure Notes None recorded. Medical Equipment None Reported. Allergies Allergen ID Allergen Name Allergen Category Reaction Reaction Severity Criticality Documentation Date Start Date Code Code System Note Provider Name and Address Organization Details Recorded Time 23586 gabapenti n medicatio n other moderate Not available 04/06/20222012 09291 RxNorm Not Available [facility] 3 08:51:27 Medications Name Sig Start Date Stop Date Status Note LastModified by Organization Details LastModified Time amoxicillin 500 mg capsule active Not Available Not Available Not Available lamotrigine 150 mg tablet TAKE 1 TABLET BY MOUTH DAILY active Not Available Not Available No t Available nystatin 100,000 unit/mL oral suspension active Not Available Not Available N ot Available prednisone 10 mg tablet 2 tab x 1 day, 1 tab x 2 days Take by oral route. active Not Available Not Available No t Available clindamycin HCl 300 mg capsule TAKE ONE CAPSULE BY MOUTH THREE TIMES DAILY UNTIL GONE 04/20 completed Not Available Not Available Not Available trazodone 50 mg tablet TAKE 1 TO 2 TABLETS BY MOUTH EVERY EVENING NEEDED FOR INSOMNIA 12/18 completed Not Available Not Available Not Available oxybutynin chloride ER 10 mg tablet,exte nded release 24 hr TAKE 1 TAB BY MOUTH DAILY active Not Available Not Available No t Available azithromyci n 250 mg tablet TAKE 1 TABLET BY MOUTH DAILY FOR 2 DAYS. START ON DAY 2 OF THERAPY 12/18 completed Not Available Not Available Not Available hydrocodone 5 mg-acetamin ophen 325 mg tablet TAKE 1 TABLET BY MOUTH EVERY 6 HOURS NEEDED FOR PAIN 12/18 completed Not Available Not Available Not Available diltiazem CD 240 mg capsule,ext ended release 24 hr TAKE 1 CAPSULE BY MOUTH DAILY active Not Available Not Available No t Available gabapentin 400 mg capsule active Not Available Not Available Not Available sertraline 100 mg tablet Take 1 tablet every day by oral route. active Not Available Not Available No t Available prednisone 5 mg tablet active Not Available Not Available Not Available penicillin V potassium 500 mg tablet 08/04 completed Not Available Not Available Not Available digoxin 250 mcg (0.25 mg) tablet daily 08/04 completed Not Available Not Available Not Available sulfamethox azole 800 mg-trimetho prim 160 mg tablet TAKE 1 TABLET BY MOUTH EVERY 12 HOURS 12/18 completed Not Available Not Available Not Available tramadol 50 mg tablet TAKE 1 TO 2 TABLETS BY MOUTH EVERY 4 TO 6 HOURS NEEDED 12/18 completed Not Available Not Available Not Available amitriptyli ne 50 mg tablet TAKE 1 TABLET BY MOUTH EVERY DAY AT BEDTIME 12/18 completed Not Available Not Available Not Available triamcinolo ne acetonide 0.1 % topical cream APPLY THIN COAT TO AFFECTED AREA TWICE A DAY active Not Available Not Available No t Available amoxicillin 500 mg tablet Take 1 tablet every 8 hours by oral route for 10 days. 01/06 completed Not Available Not Available Not Available warfarin 4 mg tablet active Not Available Not Available No t Available lamotrigine 25 mg tablet active Not Available Not Available Not Available oxycodone-a cetaminophe n 5 mg-325 mg tablet 02/27 completed Not Available Not Available Not Available lorazepam 0.5 mg tablet twice daily active Not Available Not Available No t Available trazodone 100 mg tablet TK 1 T PO Q NIGHT 02/27 completed Not Available Not Available Not Available ropinirole 0.25 mg tablet 12/18 completed Not Available Not Available Not Available Kenalog 10 mg/mL suspension for injection In office injection administe red by the provider 06/03 completed [facility]: [phone]- [phone] Not Available Not Available Not Available lorazepam 2 mg tablet Take 1 tablet 3 times a day by oral route. active Not Available Not Available No t Available meclizine 25 mg tablet 06/13 completed Not Available Not Available Not Available baclofen 10 mg tablet one po q 6 hours prn active Not Available Not Available No t Available hydrocodone 7.5 mg-acetamin ophen 325 mg tablet 08/04 completed Not Available Not Available Not Available lisinopril 10 mg tablet active Not Available Not Available Not Available prednisone 50 mg tablet TAKE 1 TABLET BY MOUTH DAILY FOR 2 DAYS 12/18 completed Not Available Not Available Not Available warfarin 2 mg tablet 02/27 completed Not Available Not Available Not Available warfarin 5 mg tablet TK 1 T PO QD DIRECTED active Not Available Not Available No t Available losartan 25 mg tablet TK 1 T PO QD active Not Available Not Available No t Available Advair Diskus 500 mcg-50 mcg/dose powder for inhalation active Not Available Not Available N ot Available buspirone 7.5 mg tablet prn active Not Available Not Available Not Available omeprazole 20 mg capsule,del ayed release TK 1 C PO BID active Not Available Not Available No t Available montelukast 10 mg tablet daily active Not Available Not Available Not Available hydrocodone 5 mg-acetamin ophen 500 mg tablet active Not Available Not Available No t Available lisinopril 5 mg tablet active Not Available Not Available Not Available mupirocin 2 % topical ointment APPLY TO RIGHT NASAL PASSAGE FOUR TIMES DAILY active Not Available Not Available No t Available Levaquin 500 mg tablet Take 1 tablet every 24 hours by oral route for 10 days. 01/17 completed Not Available Not Available Not Available lorazepam 1 mg tablet Take 1 tablet 3 times a day by oral route. active Not Available Not Available No t Available warfarin 1 mg tablet TK 1 TS PO D UTD active Not Available Not Available No t Available ibuprofen 600 mg tablet TK 1 T PO Q 6 H PRF PAIN active Not Available Not Available No t Available zolpidem 10 mg tablet one po at hs active Not Available Not Available No t Available methylpredn isolone 4 mg tablets in a dose pack active Not Available Not Available Not Available albuterol sulfate HFA 90 mcg/actuati on aerosol inhaler INHALE 1 TO 2 PUFFS BY MOUTH EVERY 4 TO 6 HOURS NEEDED FOR SHORTNESS OF BREATH OR WHEEZING active Not Available Not Available No t Available cefdinir 300 mg capsule TAKE 1 CAPSULE BY MOUTH EVERY 12 HOURS FOR 5 DAYS 12/18 completed Not Available Not Available Not Available fluticasone propionate 50 mcg/actuati on nasal spray,suspe nsion SHAKE LQ AND U 1 TO 2 SPRAYS IEN QD PRN 08/04 completed Not Available Not Available Not Available lamotrigine 100 mg tablet TK 1 T PO QD active Not Available Not Available No t Available ipratropium bromide 21 mcg (0.03 %) nasal spray 08/04 completed Not Available Not Available Not Available sulindac 200 mg tablet active Not Available Not Available Not Available buspirone 15 mg tablet active Not Available Not Available Not Available ciclopirox 0.77 % topical cream 06/13 completed Not Available Not Available Not Available escitalopra m 10 mg tablet TAKE 1 TABLET BY MOUTH EVERY DAY 12/18 completed Not Available Not Available Not Available cyclobenzap rine 5 mg tablet Take 1 tablet 3 times a day by oral route as needed. active Not Available Not Available No t Available Vigamox 0.5 % eye drops active Not Available Not Available Not Available nitrofurant oin monohydrate /macrocryst als 100 mg capsule TAKE 1 CAPSULE BY MOUTH TWICE A DAY active Not Available Not Available No t Available DILT-XR 240 mg capsule, extended release active Not Available Not Available Not Available Cymbalta 30 mg capsule,del ayed release active Not Available Not Available Not Available eszopiclone 2 mg tablet TAKE 1 TABLET BY MOUTH EVERY DAY 12/18 completed Not Available Not Available Not Available donepezil 5 mg disintegrat ing tablet DISSOLVE 1 TABLET ON THE TONGUE DAILY active Not Available Not Available No t Available Nevanac 0.1 % eye drops,suspe nsion active Not Available Not Available Not Available lidocaine (PF) 10 mg/mL (1 %) injection solution In office injection administe red by the provider 06/03 completed [facility]: [phone] [phone]- [phone] Not Available Not Available Not Available Advair HFA 230 mcg-21 mcg/actuati on aerosol inhaler two puffs twice a day active Not Available Not Available No t Available Voltaren 1 % topical gel active Not Available Not Available Not Available Durezol 0.05 % eye drops active Not Available Not Available Not Available Seroquel XR 50 mg tablet,exte nded release Take 1 tablet every day by oral route. 2012 active Not Available Not Available Not Avai lable PEG-3350 with flavor packs 420 gram oral solution active Not Available Not Available Not Available Nucynta 50 mg tablet active Not Available Not Available No t Available Pradaxa 150 mg capsule TK 1 C PO BID 08/04 completed Not Available Not Available Not Available Xarelto 20 mg tablet active Not Available Not Available No t Available Myrbetriq 25 mg tablet,exte nded release TAKE 1 TABLET BY MOUTH EVERY DAY 04/08 completed Not Available Not Available Not Available Myrbetriq 50 mg tablet,exte nded release 12/18 completed Not Available Not Available Not Available Anoro Ellipta 62.5 mcg-25 mcg/actuati on powder for inhalation INHALE 1 PUFF PO ONCE D 06/13 completed Not Available Not Available Not Available Fluarix Quad 6742-3048 (PF) 60 mcg (15 mcg x 4)/0.5 mL IM syringe active Not Available Not Available N ot Available Fluzone High-Dose 3639-5207 (PF) 180 mcg/0.5 mL intramuscul ar syringe ADM 0.5ML IM UTD 03/14 completed Not Available Not Available Not Available Fluzone High-Dose 1262-9801 (PF) 180 mcg/0.5 mL intramuscul ar syringe active Not Available Not Available N ot Available Trelegy Ellipta 100 mcg-62.5 mcg-25 mcg powder for inhalation USE 1 INHALATIO N EVERY 24 HOURS RINSE AND SPIT DO NOT USE WITH BUDESONID E NEBULIZER active Not Available Not Available No t Available Fluzone High-Dose 9166-6896 (PF) 180 mcg/0.5 mL intramuscul ar syringe active Not Available Not Available N ot Available Afluria Qd 2018- (36 mos up)(PF)60 mcg (15 mcg x4)/0.5 mL IM syringe ADM 0.5ML IM UTD 08/04 completed Not Available Not Available Not Available Fluad Quad (6 5yr up)(PF) 60 mcg (15 mcg x 4)/0.5mL IM syringe PHARMACY ADMINISTE RED 02/27 completed Not Available Not Available Not Available Paxlovid 300 mg (150 mg x 2)-100 mg tablets in a dose pack TK 2 NIRMATREL VIR TS AND 1 RITONAVIR T TOGETHER PO BID FOR 5 DAYS BID FOR 5 DAYS 12/18 completed Not Available Not Available Not Available Quviviq 25 mg tablet Take 1 tablet every day by oral route at bedtime. 12/18 completed Not Available Not Available Not Available Quviviq 50 mg tablet Take by oral route for 10 days. 05/24 completed Not Available Not Available Not Available Vitals Date Recorded Body weight Body mass index (BMI) Body height Body temperature Heart rate Oxygen saturation Oxygen saturation in Arterial blood by Pulse oximetry Systolic blood pressure Diastolic blood pressure Provider Name and Address Organization Details Last Updated DateTime 4 42979.0 1 g 24.6 kg/m2 154.94 cm 97.7 [degF] 88 /min 97 % 97 % 132 mm[Hg] 92 mm[Hg] Swetha Rojas RN [place] [facility] [employer] 4 15:35:11 Social History Question Answer Notes LastModified by Organizat ion Details LastModified Time Tobacco Smoking Status Never Smoker Not Available [facility] 04/06/2022 08:43:17 What Is Your Level Of Alcohol Consumption? Occasional Once A Month Not Even A Full Of Glass [id number] Information not available 04/06/2022 What Is Your Level Of Caffeine Consumption? Occasional [id number] Information not available 04/06/2022 In The 14 Days Before Symptom Onset, Have You Had Close Contact With A Laboratory-confir med COVID-19 While That Case Was Ill? No [id number] Information not available 04/06/2022 In The 14 Days Before Symptom Onset, Have You Had Close Contact With A Person Who Is Under Investigation For COVID-19 While That Person Was Ill? No [id number] Information not available 04/06/2022 What Type Of Diet Are You Following? REGULAR [id number] Information not available 04/06/2022 What Is Your Occupation? Retired [id number] Information not available 04/06/2022 What Was The Date Of Your Most Recent Tobacco Screening? 06/03/2020 [id number] Information not available 04/06/2022 Have You Ever Been Counseled For Unhealthy Alcohol Use? No [id number] Information not available 04/06/2022 Do You Use Any Illicit Or Recreational Drugs? No [id number] Information not available 04/06/2022 Has Tobacco Cessation Counseling Been Provided? No [id number] Information not available 04/06/2022 Have You Recently Traveled Abroad? No [id number] Information not available 04/06/2022 Do You Have Any Dietary Restrictions? No [id number] Information not available 04/06/2022 Do You Or Have You Ever Used Any Other Forms Of Tobacco Or Nicotine? No [id number] Information not available 04/06/2022 Sex: Unknown Functional Status None recorded. Mental Status None recorded. Family History Relationship Description Onset Age of this Age Resolved Age Notes LastModified by Organization Details LastModified Time Father Hypertensive disorder [id number] Not available 04/06/2022 08:43:25 Mother Hypertensive disorder [id number] Not available 04/06/2022 08:43:26 Unspecified Relation Heart disease [id number] Not available 04/06/2022 08:43:26 Medical History Condition Response HEART DISEASE/HEART PROBLEMS Y ARTHRITIS Y USE OF BLOOD THINNERS Y COPD Y HYPERTENSION Y Gynecological HistoryNo gynecological history recorded. Obstetrics History GPAL:G 0 P 0 0 0 0 Immunizations Vaccine Type Date Status Note Provider Nam e and Address Organization Details Recorded Time Influenza, high-dose, trivalent, PF 8 completed ARIEL [place] [employer] [facility] 11/03/2022 16:52:18 Influenza, split virus, quadrivalent, PF 3 completed Not Available [facility] 04/06/2022 08:51:22 Pneumococcal conjugate PCV 13 7 completed ARIEL [place], [place] [employer] [facility] 11/03/2022 16:52:18 Influenza, high-dose, trivalent, PF 4 completed Not Available [facility] 04/06/2022 08:51:23 Pneumococcal conjugate PCV 13 7 completed Not Available [facility] 04/06/2022 08:51:23 Past Encounters Encounter ID Performer Location Encounter Start Date Encounter Closed Date Diagnosis/Indication Diagnosis SNOMED-CT Code Diagnosis ICD10 Code Diagnosis Note [id number] NAVARRO Aragon [facility] Saida peralta [address] [facility] [place] [address] 12/19/2023 15:09:11 12/19/2023 15:55:14 Bipolar disorder 16333320 F31.9 Arthritis of knee 426707 002 M13.869 Asthma 199430285 J45.90 9 Peripheral vascular disease 654631511 I73.9 Taking mul tiple medications for chronic disease 8154070612 59314 Z79.899 Fatigue 63221481 R53.83 Adult heal th examination 470736667 Z00.00 Anxiety 75076950 F41.9 Chronic ob structive pulmonary disease 12112455 J44.9 Depressive disorder 3548 9007 F32.A Essential hypertension 40151451 I10 Memory impairment 196005 006 R41.3 Mixed anxi ety and depressive disorder 031393304 F41.8 Neuropathy 418364684 G62 .9 Osteoarthritis 277250806 M19.90 Health Concerns Section Related Observation LastModified by Organization Detai ls LastModified Time None Recorded Concern Status LastModified by Organization Details LastModified Time None Recorded Payers Encounter Date Sequence Insurance Name Policy Number Policy Muniz Covered Member ID Muniz Member ID Guarantor Name 12/19/2023 1 [facility] - MEDICARE COMPLETE CHOICE (MEDICARE REPLACEMENT PPO) [id number] Lissette Hackett [id number] Lissette Hackett Notes Date Note Type Note Provider Name and Address Organization Details Recorded Time 12/19/2023 text/html sob with exertion . mild , mild dementia NAVARRO Aragon [address], [place], [address], [place] [employer] [facility] 01/10/2024 16:11:03 OBGyn Episode No OBEpisode recorded.
--- OUTSIDE RECORDS SUMMARY | 2024-02-22 18:38 | XMS_ITS | Data Portability ---
Author Organization [place] - [facility], Main Office Address [address] [place] [address] Care Team Providers Care Licensing Engineer Name Role Phone PRISCILLA TENORIO Primary Care Provider [phone] PRISCILLA TENORIO Referring Provider [phone] Assessment No assessment recorded. Plan of Treatment Reminders Order Date Submit Date Provider Last Modified By Organization Details Last Modified Time Details Appointments Follow Up 15 2024 02:30P NAVARRO Naik Not available Not available Not available Lab lipid panel, serum [address] (Lab), [address] [place], [address], 12/26/2023 08:30:38 CMP, serum or plasma [address] (Lab), [address] [place], [address], 12/26/2023 08:30:38 CK (creatine kinase), total, serum [address] (Lab), [address] [place], [address], 12/26/2023 08:30:38 vitamin B12 + folate, serum or blood [address] (Lab), [address] [place], [address], 12/26/2023 08:30:38 vitamin D3, 25-hydrox y, serum [address] (Lab), [address] [place], [address], 12/26/2023 08:30:38 CBC w/ auto diff [address] (Lab), [address] [place], [address], 12/26/2023 08:30:39 glycohemo globin, total, blood [address] (Lab), [address] [place], [address], 12/26/2023 08:30:39 TSH, serum or plasma [address] (Lab), [address] [place], [address], 12/26/2023 08:30:38 T4, free, serum [address] (Lab), [address] [place], [address], 12/26/2023 08:30:38 Referral None recorded. Procedures None recorded. Surgeries None recorded. Imaging None recorded. Medication Orders escitalop randy 10 mg tablet 2022 023 [id number], [address], [place], [id number], 12/19/2023 15:30:56 lamotrigi ne 150 mg tablet 2023 024 [email or web address] 00 [facility] #[id number], [address] [place], [address], 12/20/2023 15:30:13 Patient TargetsNo targets recorded. Patient InstructionsNo instructions recorded. Reason for Referral None Reported. Results Created Date Observation Date Name Description Value Unit Range Abnormal Flag Note LastModifiedBy Organization Detail LastModifiedTime 12/28/1912/29/2023 LIPID PANEL , [place] cholesterol, total 195 mg/dL <200 normal Not Available [facility] [address], [place], [address], 12/29/2023 02:27:06 12/28/19 24 12/29/2023 LIPID PANEL , [place] HDL cholesterol 76 mg/dL > or = 50 normal Not Available [facility] [address], [place], [address], 12/29/2023 02:27:06 12/28/19 24 12/29/2023 LIPID PANEL , [place] triglyceride s 92 mg/dL <150 normal Not Available [facility] [address] [address] [place], [address], 12/29/2023 02:27:06 12/28/19 24 12/29/2023 LIPID PANEL , [place] LDL-choleste rol 100 mg/dL _(clifton c) high Refer ence range : <100 Dat able range <100 mg/dL for prima ry preve ntion ; <70 mg/dL for patie nts with CHD or diabe tic patie nts with > or = 2 CHD risk facto rs. LDL-C is now calcu lated using the Eunice la-Hop kins avril lowry n, which is a valid ated novel bandar son r accur acy than the Fried alda equat ion in the estim ation of LDL-C . Eunice la SS et al. LOREN. 2013; 310(1 9): 2061- 2068 (http ://ed ucati on.Qu Neris BigRoad. com/f aq/FA Q164) Not Available [facility] [address], [place], [address], 12/29/2023 02:27:06 12/28/19 24 12/29/2023 LIPID PANEL , [place] chol/HDLC ratio 2.6 (calc ) <5.0 normal Not Available [address], [address], 12/29/2023 02:27:06 12/28/19 24 12/29/2023 LIPID PANEL , [place] non HDL cholesterol 119 mg/dL _(clifton c) <130 normal For patie nts with diabe michael plus 1 major ASCVD risk facto r, treat ing to a non-H DL-C goal of <100 mg/dL (LDL- C of <70 mg/dL ) is consi dered a thera peuti c optio n. Not Available [address], [address], 12/29/2023 02:27:06 12/28/19 24 12/29/2023 COMPR EHENS JOANNE METAB OLIC PANEL glucose 104 mg/dL 65-99 high For someo ne witho ut known diabe michael, a gluco se value betwe en 100 and 125 mg/dL is consi stent with predi abete s and shoul d be confi rmed with a follo w-up test. Fasti ng refer ence inter marilyn Not Available [address], [address], 12/29/2023 02:27:08 12/28/19 24 12/29/2023 COMPR EHENS JOANNE METAB OLIC PANEL urea nitrogen (BUN) 15 mg/dL 7-25 normal Not Available [address] [address] [place], [address], 12/29/2023 02:27:08 12/28/19 24 12/29/2023 COMPR EHENS JOANNE METAB OLIC PANEL creatinine 0.65 mg/dL 0.60-0 .95 normal Not Available [facility] [address] [address] [place], [address], 12/29/2023 02:27:08 12/28/19 24 12/29/2023 COMPR EHENS JOANNE METAB OLIC PANEL eGFR 86 mL/mi n/1.7 3m2 > or = 60 normal Not Available [address], [address], 12/29/2023 02:27:08 12/28/19 24 12/29/2023 COMPR EHENS JOANNE METAB OLIC PANEL BUN/creatini ne ratio SEE NOTE: (calc ) 6-22 Not Repor dominik: BUN and Creat inine are withi n refer ence range . Not Available [address], [address], 12/29/2023 02:27:08 12/28/19 24 12/29/2023 COMPR EHENS JOANNE METAB OLIC PANEL sodium 133 mmol/ L 135-14 6 low Not Available [address], [address], 12/29/2023 02:27:08 12/28/19 24 12/29/2023 COMPR EHENS JOANNE METAB OLIC PANEL potassium 4.2 mmol/ L 3.5-5. 3 normal Not Available [address], [address], 12/29/2023 02:27:08 12/28/19 24 12/29/2023 COMPR EHENS JOANNE METAB OLIC PANEL chloride 94 mmol/ L 98-110 low Not Available [address], [address], 12/29/2023 02:27:08 12/28/19 24 12/29/2023 COMPR EHENS JOANNE METAB OLIC PANEL carbon dioxide 31 mmol/ L 20-32 normal Not Available [address], [address], 12/29/2023 02:27:08 12/28/19 24 12/29/2023 COMPR EHENS JOANNE METAB OLIC PANEL calcium 9.3 mg/dL 8.6-10 .4 normal Not Available [address] [place], [address], 12/29/2023 02:27:08 12/28/19 24 12/29/2023 COMPR EHENS JOANNE METAB OLIC PANEL protein, total 6.5 g/dL 6.1-8. 1 normal Not Available [address] [address] [place], [address], 12/29/2023 02:27:08 12/28/19 24 12/29/2023 COMPR EHENS JOANNE METAB OLIC PANEL albumin 4.1 g/dL 3.6-5. 1 normal Not Available [address], [address], 12/29/2023 02:27:08 12/28/19 24 12/29/2023 COMPR EHENS JOANNE METAB OLIC PANEL globulin 2.4 g/dL_ (calc ) 1.9-3. 7 normal Not Available [address], [address], 12/29/2023 02:27:08 12/28/19 24 12/29/2023 COMPR EHENS JOANNE METAB OLIC PANEL albumin/glob ulin ratio 1.7 (calc ) 1.0-2. 5 normal Not Available [address], [address], 12/29/2023 02:27:08 12/28/19 24 12/29/2023 COMPR EHENS JOANNE METAB OLIC PANEL bilirubin, total 0.5 mg/dL 0.2-1. 2 normal Not Available [address] [address] [place], [address], 12/29/2023 02:27:08 12/28/19 24 12/29/2023 COMPR EHENS JOANNE METAB OLIC PANEL alkaline phosphatase 82 U/L 37-153 normal Not Available [address] [address] [place], [address], 12/29/2023 02:27:08 12/28/19 24 12/29/2023 COMPR EHENS JOANNE METAB OLIC PANEL AST 16 U/L 10-35 normal Not Available [address], [address], 12/29/2023 02:27:08 12/28/19 24 12/29/2023 COMPR EHENS JOANNE METAB OLIC PANEL ALT 16 U/L 6-29 normal Not Available [address], [address], 12/29/2023 02:27:08 12/28/19 24 12/29/2023 CREAT INE KINAS E, TOTAL creatine kinase, total 47 U/L 29-143 normal Not Available [address], [address], 12/29/2023 02:27:09 12/28/19 24 12/29/2023 CBC (INCL UDES DIFF/ PLT) white blood cell count 4.8 thous and/u L 3.8-10 .8 normal Not Available [address], [address], 12/29/2023 02:27:10 12/28/19 24 12/29/2023 CBC (INCL UDES DIFF/ PLT) red blood cell count 4.63 matt on/uL 3.80-5 .10 normal Not Available [address], [address], 12/29/2023 02:27:10 12/28/19 24 12/29/2023 CBC (INCL UDES DIFF/ PLT) hemoglobin 13.3 g/dL 11.7-1 5.5 normal Not Available [address], [address], 12/29/2023 02:27:10 12/28/19 24 12/29/2023 CBC (INCL UDES DIFF/ PLT) hematocrit 41.3 % 35.0-4 5.0 normal Not Available [address], [address], 12/29/2023 02:27:10 12/28/19 24 12/29/2023 CBC (INCL UDES DIFF/ PLT) MCV 89.2 fL 80.0-1 00.0 normal Not Available [address], [address], 12/29/2023 02:27:10 12/28/19 24 12/29/2023 CBC (INCL UDES DIFF/ PLT) MCH 28.7 pg 27.0-3 3.0 normal Not Available [address], [address], 12/29/2023 02:27:10 12/28/19 24 12/29/2023 CBC (INCL UDES DIFF/ PLT) MCHC 32.2 g/dL 32.0-3 6.0 normal For adult s, a sligh t decre ase in the calcu lated MCHC value (in the range of 30 to 32 g/dL) is most likel y not clini juan c signi alexa t; kelly er, it shoul d be inter prete d with cauti on in the [facility] n with other red cell jose eters and the patie nt's clini clifton condi tion. Not Available [address], [address], 12/29/2023 02:27:10 12/28/19 24 12/29/2023 CBC (INCL UDES DIFF/ PLT) RDW 14.3 % 11.0-1 5.0 normal Not Available [address], [address], 12/29/2023 02:27:10 12/28/19 24 12/29/2023 CBC (INCL UDES DIFF/ PLT) platelet count 346 thous and/u L 140-40 0 normal Not Available [address], [address], 12/29/2023 02:27:10 12/28/19 24 12/29/2023 CBC (INCL UDES DIFF/ PLT) MPV 9.4 fL 7.5-12 .5 normal Not Available [address], [address], 12/29/2023 02:27:10 12/28/19 24 12/29/2023 CBC (INCL UDES DIFF/ PLT) absolute neutrophils 3456 cells /uL 1500-7 800 normal Not Available [address], [address], 12/29/2023 02:27:10 12/28/19 24 12/29/2023 CBC (INCL UDES DIFF/ PLT) absolute lymphocytes 562 cells /uL 850-39 00 low Not Available [address], [address], 12/29/2023 02:27:10 12/28/19 24 12/29/2023 CBC (INCL UDES DIFF/ PLT) absolute monocytes 562 cells /uL 200-95 0 normal Not Available [address], [address], 12/29/2023 02:27:10 12/28/19 24 12/29/2023 CBC (INCL UDES DIFF/ PLT) absolute eosinophils 192 cells /uL 15-500 normal Not Available [address], [address], 12/29/2023 02:27:10 12/28/19 24 12/29/2023 CBC (INCL UDES DIFF/ PLT) absolute basophils 29 cells /uL 0-200 normal Not Available [address], [address], 12/29/2023 02:27:10 12/28/19 24 12/29/2023 CBC (INCL UDES DIFF/ PLT) neutrophils 72 % normal Not Available [address], [address], 12/29/2023 02:27:10 12/28/19 24 12/29/2023 CBC (INCL UDES DIFF/ PLT) lymphocytes 11.7 % normal Not Available [address], [address], 12/29/2023 02:27:10 12/28/19 24 12/29/2023 CBC (INCL UDES DIFF/ PLT) monocytes 11.7 % normal Not Available [facility] [address], [address], 12/29/2023 02:27:10 12/28/19 24 12/29/2023 CBC (INCL UDES DIFF/ PLT) eosinophils 4.0 % normal Not Available [address], [address], 12/29/2023 02:27:10 12/28/19 24 12/29/2023 CBC (INCL UDES DIFF/ PLT) basophils 0.6 % normal Not Available [address], [address], 12/29/2023 02:27:10 12/28/19 24 12/29/2023 HEPAT ITIS B SURFA CE ANTIB PAXTON QL hepatitis B surface antibody ql NON-RE ACTIVE non-re active normal Not Available [address], [address], 12/29/2023 02:27:11 12/28/19 24 12/29/2023 VITAM IN B12/F OLATE , SERUM PANEL vitamin B12 525 pg/mL 200-11 00 normal Not Available [address], [address], 12/29/2023 02:27:12 12/28/19 24 12/29/2023 VITAM IN B12/F OLATE , SERUM PANEL folate, serum 20.9 NG/mL normal Refer ence Range Low: <3.4 Borde rline : 3.4-5 .4 Yoly l: >5.4 Not Available [address] [address] [place], [address], 12/29/2023 02:27:12 12/28/19 24 12/29/2023 T4, FREE T4, free 1.3 NG/dL 0.8-1. 8 normal Not Available [facility] [address] [address] [place], [address], 12/29/2023 02:27:13 12/28/19 24 12/29/2023 TSH TSH 1.67 mIU/L 0.40-4 .50 normal Not Available [facility] [place] [address] [address] [place], [address], 12/29/2023 02:27:14 12/28/19 24 12/29/2023 VITAM IN D,25- OH,TO POLLY,I A vitamin D,25-oh,tota l,ia 25 NG/mL 30-100 low Vitam in D Statu s 25-OH Vitam in D: Defic iency : <20 ng/mL Insuf ficie ncy: 20 - 29 ng/mL Optim al: > or = 30 ng/mL For 25-OH Vitam in D testi ng on patie nts on D2-rodríguez pplem entat ion and patie nts for whom quant itati on of D2 and D3 fract ions is requi red, the [facility] eD(TM ) 25-OH VIT D, (D2,D 3), LC/MS /MS is recom jeannette d: order code 51041 (shady ents >2yrs ). See Note 1 Note 1 For addit ional infor kari mobley refer to http: //troy Deng gnbaldev ics.c om/fa q/FAQ 199 (This link is being provi ded for infor kam kapoor/ naina fox purpo ses only. ) Not Available [facility] [address] [address] [address] [place], [address], 12/29/2023 02:27:15 09/29/19 22 09/28/2021 XR, knee No observ ation record ed. MIGRATION. [address], [place], [address], 04/06/2022 08:51:32 09/29/19 22 09/28/2021 XR, hip, unila teral , 2 or 3 view No observ ation record ed. MIGRATION. [address], [place], [address], 04/06/2022 08:51:32 10/05/19 22 10/04/2021 XR, knee, 3 view No observ ation record ed. MIGRATION. [facility] , [place], [address], 04/06/2022 08:51:32 10/05/19 22 XR, knee, 3 view [facility] [address] [place] [address] Patien t Name: MICHELLE SANDOVAL IA Access ion #: [id number] Sex: F : 1940 0 Locati on: RA2 Attend ing Physic teja: MELITA FERRO Orderi ng Physic teja: ROSA WELLS RUNDA Exam Date: 022 3:23 PM Exam Name: XR KNEE LT 3V Admitt ing Diagno sis(es ): RADIOL OGY REPORT - FINAL EXAM: XR KNEE LT 3V HISTOR Y: pain 81-yea r-old female with left knee pain and swelli ng after fall 1 week ago. COMPAR MEHUL: Radiog raphs dated 2016. TECHNI QUE: 3 views of the left knee were perfor med. FINDIN GS: No acute fractu re is identi fied about the left knee. There are small margin al osteop hytes of the medial and patell ofemor al compar tments . There is mild joint space narrow ing of the medial compar tment. There is chondr ocalci nosis of the latera l menisc us. No eviden ce of signif icant joint effusi on. There is soft tissue swelli ng anteri fabio. Athero sclero tic Page 1 of 2 [facility] Patien t Name: MICHELLE SANDOVAL IA Access ion #: [id number] Sex: F : 1940 0 Exam Date: 3:23 PM Exam Name: XR KNEE LT 3V Admitt ing Diagno sis(es ): calcif icatio ns are visual ized in the distal SFA. IMPRES SARAH: 1. Degene rative change s of the left knee withou t eviden ce of acute fractu re. 2. Subcut aneous contus ion anteri fabio. 3. 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 Create d and electr onical ly signed by: Dustin lorenzana MD Signed Date: 4:48 PM (CT) Dictat ed by: Dustin lorenzana MD DD: 4:48 PM (CT) DT: 4:48 PM (CT) Page 2 of 2 [facility]. [facility] (Imaging) [address] [place], [address], 04/06/2022 08:51:32 11/11/19 22 11/10/2021 XR, wrist No observ ation record ed. MIGRATION. [facility] [address], [place], [address], 04/06/2022 08:51:32 11/12/19 22 11/10/2021 XR, wrist No observ ation record ed. MIGRATION. [facility] [address], [place], [address], 04/06/2022 08:51:32 01/02/20 22 01/01/2022 XR, chest , 2 view No observ ation record ed. [id number] [facility] [address], [place], [address], 04/06/2022 08:51:32 10/07/19 23 10/05/2022 stres s echoc ardio gram No observ ation record ed. [email or web address] [facility] [address], [place], [address], 10/07/2022 11:24:41 03/08/19 24 03/08/2023 MRI, brain + brain stem, w/o contr ast No observ ation record ed. [email or web address] [facility] [address] [place], [address], 03/21/2023 12:39:03 Result Notes None recorded. Problems Name Problem SNOMED Code Status Onset Date Resolution Date Notes Provider Name and Address Organization Details Recorded Time Injury of ankle 730466200 Active Not Available [facility] 3 08:46:42 Chronic obstructi ve pulmonary disease 37872176 Completed Melita Bill MD [address] [facility], [facility] [address], [place], [address] , [facility] 3 15:22:05 Bipolar disorder 74146520 Active Not Available [facility] 3 08:46:42 Acute sinusitis 80253337 Active Not Available [facility] 3 08:46:42 Asthma 662625603 Active Not Available [facility] 3 08:46:42 Incomplet e uterovagi nal prolapse 847039005 Active Not Available [facility] 3 08:46:42 Skeletal muscle tender 91132075 Active Not Available [facility] 3 08:46:42 Osteoarth ritis of knee 505891768 Active Not Available [facility] 3 08:46:42 Urinary symptoms 028410229 Active Not Available [facility] 3 08:46:43 Headache 03425187 Active Not Available [facility] 3 08:46:43 Cystocele 132050068 Active Not Available [facility] 3 08:46:43 Tremor 26158048 Active Not Available [facility] 3 08:46:43 Complaini ng of insomnia Active Not Available [facility] 3 08:46:43 Low back pain 814448185 Active Not Available [facility] 3 08:46:43 Pain in left lower limb 661051392 Active Not Available [facility] 3 08:46:43 Back problem 918737456 Active Not Available [facility] 3 08:46:43 Enthesopa thy of hip region 87046124 Active Not Available [facility] 3 08:46:43 Knee pain Active Not Available [facility] 3 08:46:43 Depressiv e disorder 60895299 Active Not Available [facility] 3 08:46:44 Arthritis of knee 590585248 Active Not Available [facility] 3 08:46:44 Feels hot 820224787 Active Not Available [facility] 3 08:46:44 Hypertens joanne disorder 92930535 Active Not Available [facility] 3 08:46:44 Neuropath y 024005424 Active Not Available [facility] 3 08:46:44 Osteoarth ritis 660606273 Active Not Available [facility] 3 08:46:44 Periphera l vascular disease 726262373 Active Not Available [facility] 3 08:46:44 Epidermoi d cyst of skin 475438219 Active Not Available [facility] 3 08:46:44 Chronic atrial fibrillat ion 152258811 Active Not Available [facility] 3 08:46:44 Herniatio n of rectum into vagina 759332410 Active Not Available [facility] 3 08:46:45 Anxiety 26901405 Active Not Available [facility] 3 08:46:45 Hip pain 26017705 Active Not Available [facility] 3 08:46:45 Atrial fibrillat ion 50882868 Active Not Available [facility] 3 08:46:45 Hoarse 24963790 Active Not Available [facility] 3 08:46:45 Wheezing 90200482 Active Not Available [facility] 3 08:46:45 Essential hypertens ion 72109233 Active Not Available [facility] 3 08:46:45 Osteoporo sis 70428335 Active Not Available [facility] 3 08:46:46 Candidias is of mouth 10020615 Active Not Available [facility] 3 08:46:46 Sprain of medial collatera l ligament of knee 24302613 Active Not Available [facility] 3 08:46:46 Chronic rhinitis 19469841 Active Not Available [facility] 3 08:46:46 Urge incontine nce of urine 63538481 Active Not Available [facility] 3 08:46:46 Breast lump 41693370 Active Not Available [facility] 3 08:46:46 Skin lesion 22779902 Active Not Available [facility] 3 08:46:47 COVID-19 831024133 Active 2022 Melita Bill MD [address], [place], [address] , [facility] [place] [facility] 3 12:37:53 Persisten t insomnia 673391011 Active 2022 Melita Bill MD [address], [place], [address] , [facility] [place] [facility] [employer] [facility] 3 14:56:22 Chronic obstructi ve pulmonary disease 42315019 Active 2022 Melita Bill MD [address], [place], [address] , [facility] [place] [facility] [employer] [facility] 3 15:22:04 Kyphosis of thoracic spine 660387685 Active 2022 Melita Bill MD [address], [place], [address] , [facility] [place] [facility] 3 07:00:43 Memory impairmen t 465206433 Active 2022 Melita Bill MD [address], [place], [address] , [facility] [place] [facility] [employer] [facility] 3 17:01:46 Mixed anxiety and depressiv e disorder 460379791 Active 2022 Melita Bill MD [address], [place], [address] , [email or web address] [facility] 3 17:02:24 Overactiv e urinary bladder 822960221 Active 2022 Melita Bill MD [address], [place], [address] , [employer] [facility] 3 18:47:49 Taking multiple medicatio ns for chronic disease 17612166313 4108 Active 2023 NAVARRO Aragon [address], [place], [address] , [facility] [place] [employer] [facility] 4 15:55:12 Fatigue 69548098 Active 2023 NAVARRO Aragon [address], [place], [address] , [facility] [place] [facility] [employer] [facility] 4 15:57:01 Adult health examinati on Active 2023 NAVARRO Aragon [address] [employer], [place], [address] , [facility] [place] [facility] 4 15:58:02 Notes:History of TMJ Chronic Pain Syndrome-has follow with pain management Problem Notes None recorded. Procedures Surgical History Date Name Laterality Status Provider Name and Address Organization Details Recorded Time total replacement of hip completed Not Available [facility] 04/06/2022 08:43:24 arthroplasty of knee completed Not Available [facility] 04/06/2022 08:43:24 repair of cystocele completed Not Available [facility] 04/06/2022 08:43:24 Imaging Results Imaging Date Name Status LastModified by Organization Details LastModified Time 01/01/2022 XR, chest, 2 view completed MIGRATION. [id number], [place], [address], 04/06/2022 08:51:32 10/04/2021 XR, knee, 3 view completed [email or web address] [id number] [facility] [address], [place], [address], 04/06/2022 08:51:32 10/04/2021 XR, knee, 3 view completed [email or web address] [id number] [facility] ([facility]) [address] [place], [address], 04/06/2022 08:51:32 11/10/2021 XR, wrist completed [email or web address].[id number] [facility] [address], [place], [address], 04/06/2022 08:51:32 11/10/2021 XR, wrist completed [email or web address].[id number] [facility] [address], [place], [address], 04/06/2022 08:51:32 09/28/2021 XR, knee completed [email or web address].[id number], [place], [address], 04/06/2022 08:51:32 09/28/2021 XR, hip, unilateral, 2 or 3 view completed [id number], [place], [address], 04/06/2022 08:51:32 10/05/2022 stress echocardiogram completed [email or web address] [facility] [facility] [address], [place], [address], 10/07/2022 11:24:41 03/08/2023 MRI, brain + brain stem, w/o contrast completed [facility] [address] [place], [address], 03/21/2023 12:39:03 Procedure Notes None recorded. Medical Equipment None Reported. Allergies Allergen ID Allergen Name Allergen Category Reaction Reaction Severity Criticality Documentation Date Start Date Code Code System Note Provider Name and Address Organization Details Recorded Time 07835 gabapenti n medicatio n other moderate Not available 04/06/20222012 96449 RxNorm Not Available [facility] 08:51:27 Medications Name Sig Start Date Stop [...] administe red by the provider 06/03 completed [facility]: 0003- 0494- 20 Not Available Not Available [...] administe red by the provider 06/03 completed [facility]: 0409- 4276- 17 Not Available Not Available [...] Available Not Available Not Available [employer] [id number] (PF) 60 mcg (15 mcg x 4)/0.5 mL IM syringe active Not Available Not Available N ot Available Fluzone High-Dose 9386-9838 (PF) 180 mcg/0.5 mL intramuscul ar syringe ADM 0.5ML IM UTD 03/14 completed Not Available Not Available Not Available Fluzone High-Dose [id number] (PF) 180 mcg/0.5 mL intramuscul ar syringe active Not Available Not Available N ot Available Trelegy Ellipta 100 mcg-62.5 mcg-25 mcg powder for inhalation USE 1 INHALATIO N EVERY 24 HOURS RINSE AND SPIT DO NOT USE WITH BUDESONID E NEBULIZER active Not Available Not Available No t Available Fluzone High-Dose 6350-5920 (PF) 180 mcg/0.5 mL intramuscul ar syringe [...] Available Not Available Vitals Date Recorded Body mass index (BMI) Body height Oxygen saturation Oxygen saturation in Arterial blood by Pulse oximetry Heart rate Body temperature Body weight Systolic blood pressure Diastolic blood pressure Provider Name and Address Organization Details Last Updated DateTime 2 25.5 kg/m2 154.94 cm 93 % 93 % 88 /min 97.1 [degF] 12461.9 7 g 190 mm[Hg] 100 mm[Hg] Not Available [facility] 3 08:45:20 Date Recorded Body mass index (BMI) Body height Oxygen saturation Oxygen saturation in Arterial blood by Pulse oximetry Heart rate Body temperature Body weight Systolic blood pressure Diastolic blood pressure Provider Name and Address Organization Details Last Updated DateTime 2 25.2 kg/m2 154.94 cm 96 % 96 % 93 /min 98.1 [degF] 26086.5 g 180 mm[Hg] 100 mm[Hg] Not Available [facility] 3 08:45:20 Date Recorded Body height Body mass index (BMI) Body weight Body temperature Heart rate Oxygen saturation Oxygen saturation in Arterial blood by Pulse oximetry Systolic blood pressure Diastolic blood pressure Provider Name and Address Organization Details Last Updated DateTime 3 154.94 cm 25.5 kg/m2 31935.9 7 g 97.7 [degF] 100 /min 96 % 96 % 160 mm[Hg] 100 mm[Hg] SHERRELL Bain [place] [employer] [facility] [employer] 3 15:08:33 Date Recorded Body height Body mass index (BMI) Body weight Body temperature Heart rate Oxygen saturation Oxygen saturation in Arterial blood by Pulse oximetry Systolic blood pressure Diastolic blood pressure Provider Name and Address Organization Details Last Updated DateTime 3 154.94 cm 24.4 kg/m2 78177.4 2 g 97.3 [degF] 90 /min 95 % 95 % 126 mm[Hg] 82 mm[Hg] Addis francis CMA [place] [employer] [facility] 3 16:52:13 Date Recorded Body weight Body mass index (BMI) Body height Body temperature Heart rate Oxygen saturation Oxygen saturation in Arterial blood by Pulse oximetry Systolic blood pressure Diastolic blood pressure Provider Name and Address Organization Details Last Updated DateTime 4 27891.0 1 g 24.6 kg/m2 154.94 cm 97.7 [degF] 88 /min 97 % 97 % 132 mm[Hg] 92 mm[Hg] Swetha Rojas RN [facility] [employer] 4 15:35:11 Social History Question Answer Notes LastModified by Organizat ion Details LastModified Time Tobacco Smoking Status Never Smoker Not Available [facility] 04/06/2022 08:43:17 What Is Your Level Of Alcohol Consumption? Occasional Once A Month Not Even A Full Of Glass [id number] Information not available 04/06/2022 What Is Your Level Of Caffeine Consumption? Occasional [id number] Information not available 04/06/2022 In The 14 Days Before Symptom Onset, Have You Had Close Contact With A Laboratory-confir med COVID-19 While That Case Was Ill? No [id number] Information not available 04/06/2022 In The 14 Days Before Symptom Onset, Have You Had Close Contact With A Person Who Is Under Investigation For COVID-19 While That Person Was Ill? No MIGRATION.[id number] Information not available 04/06/2022 What Type Of Diet Are You Following? REGULAR [id number] Information not available 04/06/2022 What Is Your Occupation? Retired [id number] Information not available 04/06/2022 What Was The Date Of Your Most Recent Tobacco Screening? 06/03/2020 [id number] Information not available 04/06/2022 Have You Ever Been Counseled For Unhealthy Alcohol Use? No MIGRATION.[id number] Information not available 04/06/2022 Do You Use Any Illicit Or Recreational Drugs? No MIGRATION.[id number] [id number] Information not available 04/06/2022 Has Tobacco Cessation Counseling Been Provided? No MIGRATION.[id number] Information not available 04/06/2022 Have You Recently Traveled Abroad? No MIGRATION.[id number] Information not available 04/06/2022 Do You Have Any Dietary Restrictions? No MIGRATION.[id number] 0899 Information not available 04/06/2022 Do You Or Have You Ever Used Any Other Forms Of Tobacco Or Nicotine? No MIGRATION.[id number] Information not available 04/06/2022 Sex: Unknown Functional Status None recorded. Mental Status None recorded. Family History Relationship Description Onset Age of this Age Resolved Age Notes LastModified by Organization Details LastModified Time Father Hypertensive disorder [id number] Not available 04/06/2022 08:43:25 Mother Hypertensive disorder [id number] Not available 04/06/2022 08:43:26 Unspecified Relation Heart disease [id number] Not available 04/06/2022 08:43:26 Medical History Condition Response HEART DISEASE/HEART PROBLEMS Y ARTHRITIS Y USE OF BLOOD THINNERS Y HYPERTENSION Y COPD Y Gynecological HistoryNo gynecological history recorded. Obstetrics History GPAL:G 0 P 0 0 0 0 Immunizations Vaccine Type Date Status Note Provider Nam e and Address Organization Details Recorded Time Influenza, high-dose, trivalent, PF 8 completed Addis Wiley [employer] null, [place] [facility] 11/03/2022 16:52:18 Influenza, split virus, quadrivalent, PF 3 completed Not Available [facility] 04/06/2022 08:51:22 Pneumococcal conjugate PCV 13 7 completed Addis Wiley [employer] null, [facility] 11/03/2022 16:52:18 Influenza, high-dose, trivalent, PF 4 completed Not Available [facility] 04/06/2022 08:51:23 Pneumococcal conjugate PCV 13 7 completed Not Available [facility] 04/06/2022 08:51:23 Past Encounters Encounter ID Performer Location Encounter Start Date Encounter Closed Date Diagnosis/Indication Diagnosis SNOMED-CT Code Diagnosis ICD10 Code Diagnosis Note [id number] [facility] [place] [address] 04/20/2020 00:00:00 04/20/2020 20:59:08 [id number] [facility] [address] [place] [address] 05/15/2020 00:00:00 05/15/2020 13:16:02 [id number] [facility] [place] [address] [place] [address] 06/03/2020 00:00:00 06/03/2020 12:20:30 [id number] [facility] [place] [address] 10/21/2020 00:00:00 10/21/2020 21:05:57 [id number] [facility] [place] [address] 04/08/2021 00:00:00 04/08/2021 13:55:51 [id number] [facility] Saida peralta [facility] [place] [address] 10/04/2021 00:00:00 10/05/2021 05:37:00 [id number] [facility] Saida peralta [facility] [place] [address] 10/12/2021 00:00:00 10/12/2021 18:49:33 [id number] Melita Bill MD [facility] [place] [address] [place] [address] [place] [address] 05/02/2022 14:59:44 05/02/2022 15:27:53 Essential hypertension 44256896 I10 BP recheck 130/86. Monitor BP away from here. Chronic ob structive pulmonary disease 29645943 J44.9 Parking placard filled out. 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 Persistent insomnia 1919 18308 G47.09 May get better sleep with lexapro on board. Overactive urinary bladder 128897733 N32.81 Pt has tried several meds and no help. [id number] NAVARRO Aragon [facility] Saida peralta [facility] [place] [address] 12/19/2023 15:09:11 12/19/2023 15:55:14 Bipolar disorder 47348158 F31.9 Arthritis of knee 780130 002 M13.869 Asthma 742115040 J45.90 9 Peripheral vascular disease 236402737 I73.9 Taking mul tiple medications for chronic disease 9631182721 91364 Z79.899 Fatigue 91415936 R53.83 Adult heal th examination 990007092 Z00.00 Anxiety 95802930 F41.9 Chronic ob structive pulmonary disease 29334711 J44.9 Depressive disorder 3548 9007 F32.A Essential hypertension 20755728 I10 Memory impairment 710721 006 R41.3 Mixed anxi ety and depressive disorder 999579323 F41.8 Neuropathy 302769267 G62 .9 Osteoarthritis 301411805 M19.90 Health Concerns Section Related Observation LastModified by Organization Detai ls LastModified Time None Recorded Concern Status LastModified by Organization Details LastModified Time None Recorded Advance Directives Directive None Recorded Payers Encounter Date Sequence Insurance Name Policy Number Policy Muniz Covered Member ID Muniz Member ID Guarantor Name 05/02/2022 1 [facility] MEDICARE COMPLETE CHOICE (MEDICARE REPLACEMENT PPO) [id number] Lissette T Anastacialoff [id number] Lissette T Anastacialoff 11/03/2022 1 [facility] MEDICARE COMPLETE CHOICE (MEDICARE REPLACEMENT PPO) [id number] Lissette T Rudloff [id number] Lissette T Rudloff 12/19/2023 1 [facility] MEDICARE COMPLETE CHOICE (MEDICARE REPLACEMENT PPO) [id number] Lissette T Rudloff [id number] Lissette T Anastacialoff Notes Date Note Type Note Provider Name and Address Organization Details Recorded Time 05/02/2022 text/html Here for [facility]ica p luke. Has sob and sees education faculty member. Getting PFTs tomorrow.Has fallen 4 times no dizziness or light headedness. Melita Bill MD [address] [place] [address], [facility] [address], [place], [address], [facility] [employer] 05/03/2022 07:01:18 11/03/2022 text/html Is here today c/ o concern for memory and is shaking and is getting depressed. Feels needs meds for depression. She is wanting to consider seeing a neurologist. I told her depression in the elderly may cause memory issue. Pt is having persistent insomnia has tried several agents and no help. She also gets up multiple times through the night to go to the bathroom. Melita Bill MD [address] [facility], [facility] [address], [place], [address], [employer] 11/03/2022 18:49:00 12/19/2023 text/html sob with xavi Murphy mild , mild dementia NAVARRO Aragon [address] [facility], [facility] [address], [place], [address], [employer] 01/10/2024 16:11:03 OBGyn Episode No OBEpisode recorded.
== END 2024-02-15 14:49 | disposition short-term general hospital (02) ==
PROVIDERS: Emergency Provider Emergency Medicine; PCP Otolaryngology
DX: S72.141A Displaced intertrochanteric fracture of right femur, initial encounter for closed fracture (principal); I48.0 Paroxysmal atrial fibrillation; J44.9 Chronic obstructive pulmonary disease, unspecified; M16.11 Unilateral primary osteoarthritis, right hip; G47.33 Obstructive sleep apnea (adult) (pediatric); G62.9 Polyneuropathy, unspecified; Z96.642 Presence of left artificial hip joint; Z96.651 Presence of right artificial knee joint; Z87.891 Personal history of nicotine dependence; Z79.899 Other long term (current) drug therapy; Z79.01 Long term (current) use of anticoagulants; R90.82 White matter disease, unspecified; M47.812 Spondylosis without myelopathy or radiculopathy, cervical region; W18.30XA Fall on same level, unspecified, initial encounter
CPT/HCPCS: 36415; 70450; 71045; 72125; 73502; 73562; 73700; 80053; 81001; 85025; 85610; 85730; 87086; 87181; 96374; 96376; 99285; J1171